=== PATIENT | male | born 1965 | race Caucasian/White ===

== ENCOUNTER 2021-12-27 16:53 | Emergency (ER) | payer MEDICARE, MEDICAID, SELFPAY ==
[2021-12-27 16:55] VITALS: BP 121/94; PULSE 107; RESP 16; TEMP 36.3; O2SAT 95; BMI 23.3
--- NOTE | 2021-12-27 17:24 | PC.NURSE ---
per Law Enforcement, pt was brought to ER for hallucinations and AMS. Pt had refused to go by ambulance but was agreeable to go with this officer. Per officer, pt does not normally have hallucinations. Pt is alert and oriented to person, place, and time. Pt reports hallucinations of people saying things that he doesn't want to hear. Pt unable to elaborate further. Pt also reports he thinks he has covid because I have all the symptoms. Pt denies known covid exposure, dyspnea, cough, sore throat, or fevers. Pt denies any pain. Denies SI/HI
--- NOTE | 2021-12-27 17:38 | ED.C_ITS ---
Documented by User: Rere Mcintosh MD 12/27/21 19:20 HPI - Psych General: Chief Complaint: Psychiatric Symptoms Stated Complaint: hallucinations Time Seen by Provider: 12/27/21 16:58 Source: patient and EMS Mode of arrival: EMS Limitations: no limitations History of Present Illness: 56-year-old male is here for hallucinations per EMS he stated that he saw someone under his chair. Patient tells me he has had a stroke in the past he does see things time to time but he knows that they are not real he is currently answering all my questions appropriately. He denies any suicidal or homicidal ideations he denies any worsening improving factors he has no focal deficits. Associated symptoms: Reports auditory hallucinations Review of Systems Const: Denies: fever(s), chills, body aches or change in appetite Eyes: Denies: blurry vision or eye discomfort ENMT: Denies: throat pain or dental pain Card: Denies: chest pain Resp: Denies: dyspnea GI: Denies: abdominal pain, nausea, vomiting or diarrhea : Denies: dysuria Musc: Denies: neck pain or back pain Skin/Breast: Denies: rash Neuro: Denies: headache(s) Psych: Reports: auditory hallucinations Chava/Lymph: Denies: easy bruising All/Imm: Denies: urticaria PFSH ED PFSH: Medical History (Updated 01/04/22 @ 00:01 by ) CVA (cerebrovascular accident) Social History (Updated 12/27/21 @ 19:18 by Rere Mcintosh MD) Substance/Drug Use: unknown Physical Exam Const: COMMON NORMALS: no acute distress, patient oriented x3 and healthy appearing HENMT: COMMON NORMALS: normocephalic and atraumatic HEAD & SCALP: normocephalic and atraumatic Eye: COMMON NORMALS: Equal, round and reactive pupils present and EOMs intact bilaterally PUPIL: Yes Equal, round and reactive pupils present Neck/C-Spine: COMMON NORMALS: full ROM and supple Chest: COMMONS NORMALS: normal inspection of the chest and normal palpation of entire chest wall Resp: COMMON NORMALS: normal respiratory effort, No retractions, No use of accessory muscles and clear to auscultation bilaterally AUSCULTATION: clear to auscultation bilaterally Cardio: COMMON NORMALS: regular rate, regular rhythm and No murmurs present (Cardio) RATE: regular rate RHYTHM: regular rhythm GI: COMMON NORMALS: Normal to inspection, nondistended, normoactive bowel sounds present, Soft to palpation, non-tender and no masses PALPATION: Yes Soft to palpation Extremity: COMMON NORMALS: normal to inspection and full ROM Neuro: COMMON NORMALS: patient oriented x3, moves all extremities and no focal motor deficits Psych: COMMON NORMALS: mental status grossly normal, Normal thought process present and cooperative THOUGHT PROCESS: Normal thought process present Skin: COMMON NORMALS: no rashes or lesions noted and no wounds GENERAL SKIN EXAM: no rashes or lesions noted Course Vital Signs: Vital signs: Vital Signs Temperature 97.3 F L 12/27/21 16:55 Pulse Rate 80 12/27/21 18:47 Respiratory Rate 18 12/27/21 18:47 Blood Pressure 131/98 12/27/21 18:47 Pulse Oximetry 100 12/27/21 18:47 Oxygen Delivery Me thod 12/27/21 18:47 MDM - Psych Medical Decision Making Patient presents here with possible loose [place] he is well-appearing here he has no signs of stroke he is able ambulate he is answering all my questions appropriately here he does not appear to be acutely psychotic he is not suicidal or homicidal he is stable for discharge he is to follow-up with PCP and return if worsening. He states that some of his hallucinations are chronic from a CVA he has no signs of any acute worsening he does not have any affidavits I did ask him if he felt like he needed to go to psych [facility] and he adamantly denied he stable for discharge Lab Data : 12/27/21 17:55 12/27/21 17:[address] 12/27/21 17:56 IMPRESSION: No acute intracranial abnormality. Laboratory Results WBC 7.4 10^3/uL (4.0-10.0) 12/27/21 17:55 RBC 5.64 10^6/uL (4.1-5.3) H 12/27/21 17:55 Hgb 16.8 g/dL (11.7-16.6) H 12/27/21 17:55 Hct 48.8 % (42.0-52.0) 12/27/21 17:55 MCV 86.5 fl (80-94) 12/27/21 17:55 MCH 29.8 pg (28.0-34.0) 12/27/21 17:55 MCHC 34.4 g/dL (30.0-36.0) 12/27/21 17:55 RDW 13.2 % (12.1-15.1) 12/27/21 17:55 Plt Count 186 10^3/cmm (130-400) 12/27/21 17:55 MPV 12.0 fL (7.4-10.4) H 12/27/21 17:55 Neut % (Auto) 83.0 % 12/27/21 17:55 Lymph % (Auto) 11.4 % 12/27/21 17:55 Churchill % (Auto) 4.7 % 12/27/21 17:55 Eos % (Auto) 0.1 % 12/27/21 17:55 Baso % (Auto) 0.5 % 12/27/21 17:55 Neut # (Auto) 6.17 10^3/uL (1.8-7.7) 12/27/21 17:55 Lymph # (Auto) 0.9 10^3/uL (0.8-4.8) 12/27/21 17:55 Churchill # (Auto) 0.4 10^3/uL (0.2-0.9) 12/27/21 17:55 Eos # (Auto) 0.0 10^3/uL (0.0-0.8) 12/27/21 17:55 Baso # (Auto) 0.0 10^3/uL (0.0-0.1) 12/27/21 17:55 Nucleated RBC % (auto) 0 % 12/27/21 17:55 Nucleated RBCs # 0.0 /100WBC 12/27/21 17:55 Sodium 140 mmol/L (136-145) 12/27/21 17:55 Potassium 4.4 mmol/L (3.5-5.1) 12/27/21 17:55 Chloride 98 mmol/L (98-107) 12/27/21 17:55 Carbon Dioxide 25 mmol/L (22-29) 12/27/21 17:55 Anion Gap 21.4 (5-19) H 12/27/21 17:55 BUN 32 mg/dL (6-20) H 12/27/21 17:55 Creatinine 1.8 mg/dL (0.7-1.2) H 12/27/21 17:55 GFR Calculation 38.9 mL/min (90-130) L 12/27/21 17: Glucose 123 mg/dL (65-115) H 12/27/21 17:55 Calculated Osmolality 298 mOsm/kg (285-295) H 12/27/21 17:55 Calcium 10.7 mg/dL (8.5-10.5) H 12/27/21 17: Total Bilirubin 1.6 mg/dL (0.15-1.2) H 12/27/21 17:55 AST 19 U/L (0-40) 12/27/21 17: ALT 19 U/L (0-41) 12/27/21 17:55 Alkaline Phosphatase 61 U/L (40-130) 12/27/21 17:55 Total Protein 7.8 g/dL (6.6-8.7) 12/27/21 17: Albumin 4.5 g/dL (3.5-5.2) 12/27/21 17: Globulin 3.3 g/dL (1.3-4.6) 12/27/21 17:55 Urine Color Courtney (Yellow) 12/27/21 18:30 Urine Appearance Clear (CLEAR) 12/27/21 18: Urine pH 5 (5-7) 12/27/21 18:30 Ur Specific Colstrip 1.030 (1.005-1.030) 12/27/21 18:30 Urine Protein Trace (Negative) 12/27/21 18:30 Urine Glucose (UA) Norm (Normal) 12/27/21 18:30 Urine Ketones 1+ (Negative) H 12/27/21 18:30 Urine Blood Neg (Negative) 12/27/21 18:30 Urine Nitrate Negative (Negative) 12/27/21 18: Urine Bilirubin 1+ (Negative) H 12/27/21 18:30 Urine Urobilinogen 1 mg/dL (Negative) H 12/27/21 18:30 Ur Leukocyte Esterase Negative (Negative) 12/27/21 18:30 Urine RBC Rare /hpf (0-2) 12/27/21 18:30 Urine WBC Rare /hpf (0-5) 12/27/21 18:30 Ur Squamous Epith Cells None /hpf (0-5) 12/27/21 18:30 Calcium Oxalate Crystal Rare /hpf 12/27/21 18:30 Amorphous Sediment 1+ /hpf 12/27/21 18:30 Urine Bacteria None /hpf (NONE) 12/27/21 18:30 Hyaline Casts 5-10 /lpf H 12/27/21 18:30 Fine Granular Casts Rare /lpf 12/27/21 18:30 Urine Mucus 2+ /hpf 12/27/21 18:30 Salicylates < 0.3 mg/dL (3-10) L 12/27/21 17:55 Urine Opiates Screen Negative ng/mL (Negative) 12/27/21 18:30 Acetaminophen < 5.0 ug/mL (10-30) L 12/27/21 17:55 Ur Barbiturates Screen Negative ng/mL (Negative) 12/27/21 18:30 Ur Phencyclidine Scrn Negative ng/mL (Negative) 12/27/21 18:30 Ur Amphetamines Screen Negative ng/mL (Negative) 12/27/21 18:30 U Benzodiazepines Scrn Negative ng/mL (Negative) 12/27/21 18:30 Urine Cocaine Screen Negative ng/mL (Negative) 12/27/21 18:30 U Marijuana (THC) Screen Negative ng/mL (Negative) 12/27/21 18:30 Discharge Plan Discharge Patient Disposition: Home Clinical Impression: Hallucination Condition: Stable Discharge Orders: Discharge ED (Routine); Ordered 12/27/21 Ordered By: Rere Mcintosh Discharge Diet: Advance as tolerated Discharge Activity: Resume usual activity Patient Instructions: Hallucinations (ED) Coding Level of Care Code ED Maintenance Groundman for Chg Fwd Exam Comprehensive Documented by User: Supa Escalante DO 01/06/22 07:40 HPI - Psych General: Chief Complaint: Psychiatric Symptoms Stated Complaint: hallucinations Time Seen by Provider: 12/27/21 16:58 PFSH ED PFSH: Medical History (Updated 01/04/22 @ 00:01 by ) CVA (cerebrovascular accident) Social History (Updated 12/27/21 @ 19:18 by Rere Mcintosh MD) Substance/Drug Use: unknown Course Vital Signs: Vital signs: Vital Signs Temperature 97.3 F L 12/27/21 16:55 Pulse Rate 80 12/27/21 18:47 Respiratory Rate 18 12/27/21 18:47 Blood Pressure 131/98 12/27/21 18:47 Pulse Oximetry 100 12/27/21 18:47 Oxygen Delivery Me thod 12/27/21 18:47 [facility] - Psych Medical Decision Making Care signed out to Dr. Mcintosh at change of shift. See final notes for diagnosis and disposition. Patient presents here with possible loose [place] he is well-appearing here he has no signs of stroke he is able ambulate he is answering all my questions appropriately here he does not appear to be acutely psychotic he is not suicidal or homicidal he is stable for discharge he is to follow-up with PCP and return if worsening. He states that some of his hallucinations are chronic from a CVA he has no signs of any acute worsening he does not have any affidavits I did ask him if he felt like he needed to go to psych [facility] and he adamantly denied he s table for discharge Lab Data : 12/27/21 17:55 12/27/21 17:[address] 12/27/21 17:56 IMPRESSION: No acute intracranial abnormality. Laboratory Results WBC 7.4 10^3/uL (4.0-10.0) 12/27/21 17:55 RBC 5.64 10^6/uL (4.1-5.3) H 12/27/21 17:55 Hgb 16.8 g/dL (11.7-16.6) H 12/27/21 17:55 Hct 48.8 % (42.0-52.0) 12/27/21 17:55 MCV 86.5 fl (80-94) 12/27/21 17:55 MCH 29.8 pg (28.0-34.0) 12/27/21 17:55 MCHC 34.4 g/dL (30.0-36.0) 12/27/21 17:55 RDW 13.2 % (12.1-15.1) 12/27/21 17:55 Plt Count 186 10^3/cmm (130-400) 12/27/21 17:55 MPV 12.0 fL (7.4-10.4) H 12/27/21 17:55 Neut % (Auto) 83.0 % 12/27/21 17:55 Lymph % (Auto) 11.4 % 12/27/21 17:55 Churchill % (Auto) 4.7 % 12/27/21 17:55 Eos % (Auto) 0.1 % 12/27/21 17:55 Baso % (Auto) 0.5 % 12/27/21 17:55 Neut # (Auto) 6.17 10^3/uL (1.8-7.7) 12/27/21 17:55 Lymph # (Auto) 0.9 10^3/uL (0.8-4.8) 12/27/21 17:55 Churchill # (Auto) 0.4 10^3/uL (0.2-0.9) 12/27/21 17:55 Eos # (Auto) 0.0 10^3/uL (0.0-0.8) 12/27/21 17:55 Baso # (Auto) 0.0 10^3/uL (0.0-0.1) 12/27/21 17:55 Nucleated RBC % (auto) 0 % 12/27/21 17:55 Nucleated RBCs # 0.0 /100WBC 12/27/21 17:55 Sodium 140 mmol/L (136-145) 12/27/21 17:55 Potassium 4.4 mmol/L (3.5-5.1) 12/27/21 17:55 Chloride 98 mmol/L (98-107) 12/27/21 17:55 Carbon Dioxide 25 mmol/L (22-29) 12/27/21 17:55 Anion Gap 21.4 (5-19) H 12/27/21 17:55 BUN 32 mg/dL (6-20) H 12/27/21 17:55 Creatinine 1.8 mg/dL (0.7-1.2) H 12/27/21 17:55 GFR Calculation 38.9 mL/min (90-130) L 12/27/21 17:55 Glucose 123 mg/dL (65-115) H 12/27/21 17:55 Calculated Osmolality 298 mOsm/kg (285-295) H 12/27/21 17:55 Calcium 10.7 mg/dL (8.5-10.5) H 12/27/21 17:55 Total Bilirubin 1.6 mg/dL (0.15-1.2) H 12/27/21 17:55 AST 19 U/L (0-40) 12/27/21 17: ALT 19 U/L (0-41) 12/27/21 17:55 Alkaline Phosphatase 61 U/L (40-130) 12/27/21 17:55 Total Protein 7.8 g/dL (6.6-8.7) 12/27/21 17: Albumin 4.5 g/dL (3.5-5.2) 12/27/21 17: Globulin 3.3 g/dL (1.3-4.6) 12/27/21 17:55 Urine Color Courtney (Yellow) 12/27/21 18:30 Urine Appearance Clear (CLEAR) 12/27/21 18:30 Urine pH 5 (5-7) 12/27/21 18:30 Ur Specific Colstrip 1.030 (1.005-1.030) 12/27/21 18:30 Urine Protein Trace (Negative) 12/27/21 18:30 Urine Glucose (UA) Norm (Normal) 12/27/21 18:30 Urine Ketones 1+ (Negative) H 12/27/21 18:30 Urine Blood Neg (Negative) 12/27/21 18:30 Urine Nitrate Negative (Negative) 12/27/21 18:30 Urine Bilirubin 1+ (Negative) H 12/27/21 18:30 Urine Urobilinogen 1 mg/dL (Negative) H 12/27/21 18:30 Ur Leukocyte Esterase Negative (Negative) 12/27/21 18:30 Urine RBC Rare /hpf (0-2) 12/27/21 18:30 Urine WBC Rare /hpf (0-5) 12/27/21 18:30 Ur Squamous Epith Cells None /hpf (0-5) 12/27/21 18:30 Calcium Oxalate Crystal Rare /hpf 12/27/21 18:30 Amorphous Sediment 1+ /hpf 12/27/21 18:30 Urine Bacteria None /hpf (NONE) 12/27/21 18:30 Hyaline Casts 5-10 /lpf H 12/27/21 18:30 Fine Granular Casts Rare /lpf 12/27/21 18:30 Urine Mucus 2+ /hpf 12/27/21 18:30 Salicylates < 0.3 mg/dL (3-10) L 12/27/21 17:55 Urine Opiates Screen Negative ng/mL (Negative) 12/27/21 18:30 Acetaminophen < 5.0 ug/mL (10-30) L 12/27/21 17:55 Ur Barbiturates Screen Negative ng/mL (Negative) 12/27/21 18:30 Ur Phencyclidine Scrn Negative ng/mL (Negative) 12/27/21 18:30 Ur Amphetamines Screen Negative ng/mL (Negative) 12/27/21 18:30 U Benzodiazepines Scrn Negative ng/mL (Negative) 12/27/21 18:30 Urine Cocaine Screen Negative ng/mL (Negative) 12/27/21 18:30 U Marijuana (THC) Screen Negative ng/mL (Negative) 12/27/21 18:30 Discharge Plan Discharge Patient Disposition: Home Clinical Impression: Hallucination Condition: Stable Discharge Orders: Discharge ED (Routine); Ordered 12/27/21 Ordered By: Rere Mcintosh Discharge Diet: Advance as tolerated Discharge Activity: Resume usual activity Patient Instructions: Hallucinations (ED) Coding Level of Care Code ED Maintenance Groundman for Caterina Webb Exam Comprehensive
--- NOTE | 2021-12-27 17:56 | CTR_ITS ---
PROCEDURE INFORMATION: Exam: CT Head Without Contrast Exam date and time: 12/27/2021 6:08 PM Age: 56 years old Clinical indication: Altered mental status/memory loss and other: Hallucinations; Prior surgery; Surgery date: 6+ months; Surgery type: Jaw; Additional info: AMS TECHNIQUE: Imaging protocol: Computed tomography of the head without contrast. Radiation optimization: All CT scans at this facility use at least one of these dose optimization techniques: automated exposure control; mA and/or kV adjustment per patient size (includes targeted exams where dose is matched to clinical indication); or iterative reconstruction. COMPARISON: No relevant prior studies available. RADIATION DOSE METRICS: Total DLP (mGy-cm): 1147.78 FINDINGS: Brain: Small areas of encephalomalacia are seen in bilateral frontal lobes. Mild atrophy and mild white matter chronic microvascular changes are noted. No hemorrhage or evidence of acute infarction. Cerebral ventricles: No ventriculomegaly. Paranasal sinuses: Visualized sinuses are unremarkable. No fluid levels. Mastoid air cells: Visualized mastoid air cells are well aerated. Bones/joints: No acute fracture. Small young holes are seen in bilateral frontal bones. Soft tissues: Unremarkable. CT/CT head wo con* [id number] IMPRESSION: No acute intracranial abnormality.
[2021-12-27 18:01] LABS: Basophils % 0.5 %; Eosinophils % 0.1 %; Hematocrit 48.8 % (42.0-52.0); Hemoglobin 16.8 g/dL (11.7-16.6); Lymphocytes # 0.9 10^3/uL (0.8-4.8); Lymphocytes % 11.4 %; Mean Corpuscular HGB Conc 34.4 g/dL (30.0-36.0); Mean Corpuscular Hemoglobin 29.8 pg (28.0-34.0); Mean Corpuscular Volume 86.5 fl (80-94); Monocytes # 0.4 10^3/uL (0.2-0.9); Monocytes % 4.7 %; Neutrophils # 6.17 10^3/uL (1.8-7.7); Nucleated Red Blood Cells % 0 %; Platelet Count 186 10^3/cmm (130-400); Red Blood Count 5.64 10^6/uL (4.1-5.3); Red Cell Distribution Width 13.2 % (12.1-15.1); White Blood Count 7.4 10^3/uL (4.0-10.0)
[2021-12-27 18:19] LABS: Alanine Aminotransferase 19 U/L (0-41); Albumin Level 4.5 g/dL (3.5-5.2); Alkaline Phosphatase 61 U/L (40-130); Anion Gap 21.4 (5-19); Aspartate Amino Transferase 19 U/L (0-40); Blood Urea Nitrogen 32 mg/dL (6-20); Calcium 10.7 mg/dL (8.5-10.5); Carbon Dioxide 25 mmol/L (22-29); Chloride 98 mmol/L (98-107); Globulin 3.3 g/dL (1.3-4.6); Glomerular Filtration Rate 38.9 mL/min (90-130); Glucose 123 mg/dL (65-115); Osmolality Calculated 298 mOsm/kg (285-295); Potassium 4.4 mmol/L (3.5-5.1); Sodium 140 mmol/L (136-145); Total Bilirubin 1.6 mg/dL (0.15-1.2); Total Protein 7.8 g/dL (6.6-8.7)
[2021-12-27 18:27] LABS: Acetaminophen < 5.0 ug/mL (10-30); Salicylate < 0.3 mg/dL (3-10)
[2021-12-27 18:47] VITALS: BP 131/98; PULSE 80; RESP 18; O2SAT 100
--- NOTE | 2021-12-27 18:48 | PC.NURSE ---
pt resting in bed, watching TV.
[2021-12-27 19:04] LABS: Add Urine Microscopic? YES; Bilirubin Urine 1+ (Negative); Blood Urine Neg (Negative); Glucose Urine UA Norm (Normal); Ketones Urine 1+ (Negative); Leukocyte Esterase Urine Negative (Negative); Nitrate Urine Negative (Negative); Protein Urine Trace (Negative); RBC Urine RARE /hpf (0-2); Urine Appearance Clear (CLEAR); Urine Color Amber (Yellow); Urobilinogen Urine 1 mg/dL (Negative); WBC Urine RARE /hpf (0-5); pH Urine 5 (5-7)
[2021-12-27 19:05] LABS: Add Urine Culture? No; Amorphous Sediment Urine 1+ /hpf; Amphetamines Screen Urine Negative (Negative); Barbiturates Screen Urine Negative (Negative); Benzodiazepines Screen Urine Negative (Negative); Calcium Oxalate Crystals Urine RARE /hpf; Cocaine Screen Urine Negative (Negative); Fine Granular Casts Urine RARE /lpf; Mucus Urine 2+ /hpf; Opiate Screen Urine Negative (Negative); PCP Screen Urine Negative (Negative); THC Screen Urine Negative (Negative)
== END 2021-12-27 19:11 | disposition home or self-care (01) ==
PROVIDERS: Family Medicine; Emergency Provider Emergency Medicine
DX: R44.1 Visual hallucinations (principal); Z86.73 Personal history of transient ischemic attack (TIA), and cerebral infarction without residual deficits
CPT/HCPCS: 70450; 80053; 80306; 80307; 81001; 85025; 99284

== ENCOUNTER 2021-12-28 20:39 | Observation (INO) | payer MEDICARE, MEDICAID, SELFPAY ==
[2021-12-28] VITALS (11 sets, daily range): BP systolic 126–139; BP diastolic 82–93; PULSE 73–119; RESP 16–22; TEMP 36.4; O2SAT 95–99; BMI 20.2
--- NOTE | 2021-12-28 20:57 | W.ED.AMS ---
Documented by User: Marito Ferguson MD 01/03/22 16:57 HPI - Altered Mental Status General: Chief Complaint: Altered Mental Status Stated Complaint: Confused Time Seen by Provider: 12/28/21 20:57 Limitations: altered mental status History of Present Illness: Mr Boudreaux is a 56-year-old gentleman with history of diabetes, CAD, strokes presenting to the emergency department due to altered mental status. The patient himself appears largely unaware of recent history. He reports that he has been sick for some period of time and perhaps worse over the past few days but does not endorse specific symptoms that are worse than baseline. Per supplemental history provided by patient's son he seemed to be much more confused over the past few days and was found trying to get into strangers cars. His house was disheveled and medications were scattered about. He seemed to be delusional and possibly hallucinating. Typically patient is well oriented and functional. Onset (ago): day(s) Review of Systems General: Reports: 10 or more systems reviewed and unremarkable except in HPI and below PFSH ED PFSH: Medical History CAD (coronary artery disease) Diabetes HTN (hypertension) Stroke Surgical History Coronary angioplasty status Social History Smoking and tobacco status: former smoker Alcohol intake: former Physical Exam Const: COMMON NORMALS: patient oriented x3 and alert GENERAL APPEARANCE: cooperative, well developed and ill appearing (mildly) HENMT: COMMON NORMALS: normocephalic and atraumatic HEAD & SCALP: normocephalic and atraumatic THROAT: posterior oropharynx normal Eye: COMMON NORMALS: conjunctivae normal CONJUNCTIVA: Yes conjunctivae normal SCLERA: sclerae normal Neck/C-Spine: COMMON NORMALS: supple GENERAL: Yes trachea midline Resp: COMMON NORMALS: normal respiratory effort EFFORT & INSPECTION: Yes able to speak in complete sentences Cardio: COMMON NORMALS: regular rate and regular rhythm RATE: regular rate RHYTHM: regular rhythm GI: COMMON NORMALS: Soft to palpation PALPATION: Yes Soft to palpation and No Tenderness to palpation present (GI) PERCUSSION: normal to percussion Extremity: GENERAL: Yes normal exam except as noted and No edema Neuro: COMMON NORMALS: patient oriented x3, CN's II-XII intact bilaterally, moves all extremities, no focal motor deficits and no sensory deficits noted SENSORIUM/ORIENTATION: Yes alert and No Orientation impaired Psych: COMMON NORMALS: mental status grossly normal and Normal thought process present THOUGHT PROCESS: Normal thought process present Course Vital Signs: Vital signs: Vital Signs Temperature 97.8 F 12/30/21 11:34 Pulse Rate 63 12/30/21 11:34 Respiratory Rate 15 12/30/21 11:34 Blood Pressure 127/86 12/30/21 11:34 Pulse Oximetry 98 12/30/21 11:34 Oxygen Delivery Me thod 12/30/21 11:34 MDM - Altered Mental Status Medical Decision Making 56-year-old gentleman presenting with altered mental status. Patient has significant medical comorbidities and differential of causes is broad. Handed off to Dr. Mcintosh pending completion of ED evaluation for disposition. Patient presents here with some confusion altered mental status and hallucinations. I have spoke to psychiatrist Dr. Ayers. I took patient over from Dr. Nam and I do believe this is likely more psychiatric but talkative family has a history of a stroke and they state that that presented similarly so I did speak to hospitalist and will admit at this time for an MRI patient was placed under 96-hour hold. Medical Records I reviewed the patient's medical records. Lab Data I reviewed the patient's lab results. : 12/30/21 04:48 12/30/21 04:48 Radiology Impressions Chest X-Ray 12/28/21 21:09 IMPRESSION: No acute findings. Head CT 12/28/21 21:09 IMPRESSION: No acute intracranial abnormality. Head MRI 12/29/21 01:53 IMPRESSION: 1. No evidence of restricted diffusion to suggest acute ischemia. 2. Moderate patchy supratentorial white matter changes can be seen with hypertension, diabetes, small vessel disease in a patient this age. Mild parenchymal volume loss. 3. Moderate symmetric atrophy temporal lobes and hippocampal formations. 4. 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 Associated encephalomalacia and gliosis with a small amount of hemosiderin. 5. No other suspicious findings. Laboratory Results WBC 8.6 10^3/uL (4.0-10.0) 12/28/21 21:10 RBC 5.07 10^6/uL (4.1-5.3) 12/28/21 21:10 Hgb 15.3 g/dL (11.7-16.6) 12/28/21 21:10 Hct 43.0 % (42.0-52.0) 12/28/21 21:10 MCV 84.8 fl (80-94) 12/28/21 21:10 MCH 30.2 pg (28.0-34.0) 12/28/21 21:10 MCHC 35.6 g/dL (30.0-36.0) 12/28/21 21:10 RDW 13.2 % (12.1-15.1) 12/28/21 21:10 Plt Count 185 10^3/cmm (130-400) 12/28/21 21:10 MPV 11.7 fL (7.4-10.4) H 12/28/21 21:10 Neut % (Auto) 80.2 % 12/28/21 21:10 Lymph % (Auto) 12.3 % 12/28/21 21:10 [place] % (Auto) 6.3 % 12/28/21 21:10 Eos % (Auto) 0.4 % 12/28/21 21:10 Baso % (Auto) 0.4 % 12/28/21 21:10 Neut # (Auto) 6.87 10^3/uL (1.8-7.7) 12/28/21 21:10 Lymph # (Auto) 1.1 10^3/uL (0.8-4.8) 12/28/21 21:10 [place] # (Auto) 0.5 10^3/uL (0.2-0.9) 12/28/21 21:10 Eos # (Auto) 0.0 10^3/uL (0.0-0.8) 12/28/21 21:10 Baso # (Auto) 0.0 10^3/uL (0.0-0.1) 12/28/21 21:10 Nucleated RBC % (auto) 0 % 12/28/21 21:10 Nucleated RBCs # 0.0 /100WBC 12/28/21 21:10 Specimen Type Arterial 12/28/21 21:14 Sample Site Radial, right 12/28/21 21:14 ABG pH 7.46 (7.35-7.45) H 12/28/21 21:14 ABG pCO2 36.1 mmHg (35-45) 12/28/21 21:14 ABG pO2 96.5 mmHg (80.0-100.0) 12/28/21 21:14 ABG HCO3 25.6 mmol/L (22-26) 12/28/21 21:14 ABG O2 Saturation 98.5 12/28/21 21:14 ABG Base Excess 1.9 mmol/L (-2.0-2.0) 12/28/21 21:14 Jelani Test Pos 12/28/21 21:14 A-a O2 Gradient 1.0 mmHg (5-10) L 12/28/21 21:14 Hematocrit 45.4 % (42-52) 12/28/21 21:14 Hgb O2 Saturation 97.1 % (95-100) 12/28/21 21:14 Carboxyhemoglobin 0.9 %THgb (0.4-20.1) 12/28/21 21:14 Methemoglobin 0.5 % (0.4-1.5) 12/28/21 21:14 Total Hemoglobin 14.8 g/dL (14-18) 12/28/21 21:14 Sodium 137.0 mmol/L (131-143) 12/28/21 21:14 Potassium 3.4 mmol/L (3.5-5.0) L 12/28/21 21:14 Glucose 140.0 mg/dL (70-115) H 12/28/21 21:14 Ionized Calcium 1.3 mmol/L (1.1-1.4) 12/28/21 21:14 O2 Delivery Device None 12/28/21 21:14 FiO2 21.0 % 12/28/21 21:14 Asbestos Siding Mechanic ID [place] 12/28/21 21:14 Sodium 137 mmol/L (136-145) 12/28/21 21:10 Potassium 4.0 mmol/L (3.5-5.1) 12/28/21 21:10 Chloride 98 mmol/L (98-107) 12/28/21 21:10 Carbon Dioxide 25 mmol/L (22-29) 12/28/21 21:10 Anion Gap 18.0 (5-19) 12/28/21 21:10 BUN 39 mg/dL (6-20) H 12/28/21 21:10 Creatinine 1.9 mg/dL (0.7-1.2) H 12/28/21 21:10 GFR Calculation 36.6 mL/min (90-130) L 12/28/21 21:10 Glucose 136 mg/dL (65-115) H 12/28/21 21:10 POC Glucose 130 mg/dL (70-110) H 12/28/21 21:04 Calculated Osmolality 295 mOsm/kg (285-295) 12/28/21 21:10 Calcium 10.4 mg/dL (8.5-10.5) 12/28/21 21:10 Total Bilirubin 1.8 mg/dL (0.15-1.2) H 12/28/21 21:10 AST 25 U/L (0-40) 12/28/21 21:10 ALT 23 U/L (0-41) 12/28/21 21:10 Alkaline Phosphatase 56 U/L (40-130) 12/28/21 21:10 Ammonia 16 umol/L (16-60) 12/28/21 21:10 Troponin T Baseline 19 ng/L (0-15) H 12/28/21 21:10 Total Protein 7.6 g/dL (6.6-8.7) 12/28/21 21:10 Albumin 4.2 g/dL (3.5-5.2) 12/28/21 21:10 Globulin 3.4 g/dL (1.3-4.6) 12/28/21 21:10 TSH 1.81 uIU/mL (0.27-4.20) 12/28/21 21:10 Salicylates < 0.3 mg/dL (3-10) L 12/28/21 21:10 Acetaminophen < 5.0 ug/mL (10-30) L 12/28/21 21:10 Ethyl Alcohol < 10 mg/dL (0-10) 12/28/21 21:10 Coronavirus 229E (PCR) Not detected (NOT DETECT) 12/28/21 21:30 SARS-CoV-2 (PCR) Not detected (NOT DETECT) 12/28/21 21:30 Discharge Plan Discharge Patient Disposition: Admitted As Inpatient Admit Provider: Pa Wilson Clinical Impression: Altered mental status, Hallucination Condition: Stable Coding Level of Care Code ED Personal Health Coach for Chg Fwd Exam Comprehensive Documented by User: Rere Mcintosh MD 12/28/21 23:42 HPI - Altered Mental Status General: Chief Complaint: Altered Mental Status Stated Complaint: Confused Time Seen by Provider: 12/28/21 20:57 PFSH ED PFSH: Medical History CAD (coronary artery disease) Diabetes HTN (hypertension) Stroke Surgical History Coronary angioplasty status Social History Smoking and tobacco status: former smoker Alcohol intake: former Course Vital Signs: Vital signs: Vital Signs Temperature 97.8 F 12/30/21 11:34 Pulse Rate 63 12/30/21 11:34 Respiratory Rate 15 12/30/21 11:34 Blood Pressure 127/86 12/30/21 11:34 Pulse Oximetry 98 12/30/21 11:34 Oxygen Delivery Me thod 12/30/21 11:34 MDM - Altered Mental Status Medical Decision Making Patient presents here with some confusion altered mental status and hallucinations. I have spoke to psychiatrist Dr. Ayers. I took patient over from Dr. Nam and I do believe this is likely more psychiatric but talkative family has a history of a stroke and they state that that presented similarly so I did speak to hospitalist and will admit at this time for an MRI patient was placed under 96-hour hold. Lab Data : 12/30/21 04:48 12/30/21 04:48 Radiology Impressions Chest X-Ray 12/28/21 21:09 IMPRESSION: No acute findings. Head CT 12/28/21 21:09 IMPRESSION: No acute intracranial abnormality. Head MRI 12/29/21 01:53 IMPRESSION: 1. No evidence of restricted diffusion to suggest acute ischemia. 2. Moderate patchy supratentorial white matter changes can be seen with hypertension, diabetes, small vessel disease in a patient this age. Mild parenchymal volume loss. 3. Moderate symmetric atrophy temporal lobes and hippocampal formations. 4. 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 Associated encephalomalacia and gliosis with a small amount of hemosiderin. 5. No other suspicious findings. Laboratory Results WBC 8.6 10^3/uL (4.0-10.0) 12/28/21 21:10 RBC 5.07 10^6/uL (4.1-5.3) 12/28/21 21:10 Hgb 15.3 g/dL (11.7-16.6) 12/28/21 21:10 Hct 43.0 % (42.0-52.0) 12/28/21 21:10 MCV 84.8 fl (80-94) 12/28/21 21:10 MCH 30.2 pg (28.0-34.0) 12/28/21 21:10 MCHC 35.6 g/dL (30.0-36.0) 12/28/21 21:10 RDW 13.2 % (12.1-15.1) 12/28/21 21:10 Plt Count 185 10^3/cmm (130-400) 12/28/21 21:10 MPV 11.7 fL (7.4-10.4) H 12/28/21 21:10 Neut % (Auto) 80.2 % 12/28/21 21:10 Lymph % (Auto) 12.3 % 12/28/21 21:10 [place] % (Auto) 6.3 % 12/28/21 21:10 Eos % (Auto) 0.4 % 12/28/21 21:10 Baso % (Auto) 0.4 % 12/28/21 21:10 Neut # (Auto) 6.87 10^3/uL (1.8-7.7) 12/28/21 21:10 Lymph # (Auto) 1.1 10^3/uL (0.8-4.8) 12/28/21 21:10 [place] # (Auto) 0.5 10^3/uL (0.2-0.9) 12/28/21 21:10 Eos # (Auto) 0.0 10^3/uL (0.0-0.8) 12/28/21 21:10 Baso # (Auto) 0.0 10^3/uL (0.0-0.1) 12/28/21 21:10 Nucleated RBC % (auto) 0 % 12/28/21 21:10 Nucleated RBCs # 0.0 /100WBC 12/28/21 21:10 Specimen Type Arterial 12/28/21 21:14 Sample Site Radial, right 12/28/21 21:14 ABG pH 7.46 (7.35-7.45) H 12/28/21 21:14 ABG pCO2 36.1 mmHg (35-45) 12/28/21 21:14 ABG pO2 96.5 mmHg (80.0-100.0) 12/28/21 21:14 ABG HCO3 25.6 mmol/L (22-26) 12/28/21 21:14 ABG O2 Saturation 98.5 12/28/21 21:14 ABG Base Excess 1.9 mmol/L (-2.0-2.0) 12/28/21 21:14 Jelani Test Pos 12/28/21 21:14 A-a O2 Gradient 1.0 mmHg (5-10) L 12/28/21 21:14 Hematocrit 45.4 % (42-52) 12/28/21 21:14 Hgb O2 Saturation 97.1 % (95-100) 12/28/21 21:14 Carboxyhemoglobin 0.9 %THgb (0.4-20.1) 12/28/21 21:14 Methemoglobin 0.5 % (0.4-1.5) 12/28/21 21:14 Total Hemoglobin 14.8 g/dL (14-18) 12/28/21 21:14 Sodium 137.0 mmol/L (131-143) 12/28/21 21:14 Potassium 3.4 mmol/L (3.5-5.0) L 12/28/21 21:14 Glucose 140.0 mg/dL (70-115) H 12/28/21 21:14 Ionized Calcium 1.3 mmol/L (1.1-1.4) 12/28/21 21:14 O2 Delivery Device None 12/28/21 21:14 FiO2 21.0 % 12/28/21 21:14 Asbestos Siding Mechanic ID [place] 12/28/21 21:14 Sodium 137 mmol/L (136-145) 12/28/21 21:10 Potassium 4.0 mmol/L (3.5-5.1) 12/28/21 21:10 Chloride 98 mmol/L (98-107) 12/28/21 21:10 Carbon Dioxide 25 mmol/L (22-29) 12/28/21 21:10 Anion Gap 18.0 (5-19) 12/28/21 21:10 BUN 39 mg/dL (6-20) H 12/28/21 21:10 Creatinine 1.9 mg/dL (0.7-1.2) H 12/28/21 21:10 GFR Calculation 36.6 mL/min (90-130) L 12/28/21 21:10 Glucose 136 mg/dL (65-115) H 12/28/21 21:10 POC Glucose 130 mg/dL (70-110) H 12/28/21 21:04 Calculated Osmolality 295 mOsm/kg (285-295) 12/28/21 21:10 Calcium 10.4 mg/dL (8.5-10.5) 12/28/21 21:10 Total Bilirubin 1.8 mg/dL (0.15-1.2) H 12/28/21 21:10 AST 25 U/L (0-40) 12/28/21 21:10 ALT 23 U/L (0-41) 12/28/21 21:10 Alkaline Phosphatase 56 U/L (40-130) 12/28/21 21:10 Ammonia 16 umol/L (16-60) 12/28/21 21:10 Troponin T Baseline 19 ng/L (0-15) H 12/28/21 21:10 Total Protein 7.6 g/dL (6.6-8.7) 12/28/21 21:10 Albumin 4.2 g/dL (3.5-5.2) 12/28/21 21:10 Globulin 3.4 g/dL (1.3-4.6) 12/28/21 21:10 TSH 1.81 uIU/mL (0.27-4.20) 12/28/21 21:10 Salicylates < 0.3 mg/dL (3-10) L 12/28/21 21:10 Acetaminophen < 5.0 ug/mL (10-30) L 12/28/21 21:10 Ethyl Alcohol < 10 mg/dL (0-10) 12/28/21 21:10 Coronavirus 229E (PCR) Not detected (NOT DETECT) 12/28/21 21:30 SARS-CoV-2 (PCR) Not detected (NOT DETECT) 12/28/21 21:30 Discharge Plan Discharge Patient Disposition: Admitted As Inpatient Admit Provider: Pa Wilson Clinical Impression: Altered mental status, Hallucination Condition: Stable Coding Level of Care Code ED Personal Health Coach for Caterina Fwd Exam Comprehensive
--- NOTE | 2021-12-28 21:09 | CTR_ITS ---
PROCEDURE INFORMATION: Exam: CT Head Without Contrast Exam date and time: 12/28/2021 9:46 PM Age: 56 years old Clinical indication: Altered mental status/memory loss; Confusion or disorientation; Patient HX: Worsening confusion per family. ; Additional info: AMS TECHNIQUE: Imaging protocol: Computed tomography of the head without contrast. Radiation optimization: All CT scans at this facility use at least one of these dose optimization techniques: automated exposure control; mA and/or kV adjustment per patient size (includes targeted exams where dose is matched to clinical indication); or iterative reconstruction. COMPARISON: No relevant prior studies available. RADIATION DOSE METRICS: Total DLP (mGy-cm): 1114.98 FINDINGS: Brain: Mild bifrontal encephalomalacia. No acute intracranial findings with no evident focal mass effect or intracranial hemorrhage. Cerebral ventricles: No ventriculomegaly. Paranasal sinuses: Visualized sinuses are unremarkable. No fluid levels. Mastoid air cells: Visualized mastoid air cells are well aerated. Bones/joints: No acute findings. Soft tissues: Unremarkable. CT/CT head wo con* [id number] IMPRESSION: No acute intracranial abnormality.
--- NOTE | 2021-12-28 21:09 | XRR_ITS ---
PROCEDURE INFORMATION: Exam: XR Chest Exam date and time: 12/28/2021 9:17 PM Age: 56 years old Clinical indication: Other: Confuffion; Additional info: AMS TECHNIQUE: Imaging protocol: Radiologic exam of the chest. Views: 1 view. COMPARISON: No relevant prior studies available. FINDINGS: Lungs: Unremarkable. No consolidation. Pleural spaces: Unremarkable. No pleural effusion. No pneumothorax. Heart/Mediastinum: Unremarkable. No cardiomegaly. Bones/joints: No acute findings. XR/XR chest 1V portable [id number] IMPRESSION: No acute findings.
--- NOTE | 2021-12-28 21:10 | ECG_ITS ---
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 Measurements Intervals [place] Rate: 75 P: 63 [place]: 161 QRS: 24 QRSD: 89 T: -12 QT: 371 QTc: 417 Interpretive Statements SINUS RHYTHM WITH OCCASIONAL VENTRICULAR PREMATURE COMPLEXES MODERATE T-WAVE ABNORMALITY, CONSIDER INFERIOR ISCHEMIA [-0.1+ mV T-WAVE IN II/aVF] No previous ECG available for comparison Electronically Signed On 12-29-2021 7:08:09 CDT by Delta Martin M.D. [id number]
[2021-12-28 21:12] LABS: Glucose Point of Care 130 mg/dL (70-110)
[2021-12-28 21:15] LABS: Basophils % 0.4 %; Eosinophils % 0.4 %; Hemoglobin 15.3 g/dL (11.7-16.6); Lymphocytes # 1.1 10^3/uL (0.8-4.8); Lymphocytes % 12.3 %; Mean Corpuscular HGB Conc 35.6 g/dL (30.0-36.0); Mean Corpuscular Hemoglobin 30.2 pg (28.0-34.0); Mean Corpuscular Volume 84.8 fl (80-94); Mean Platelet Volume 11.7 fL (7.4-10.4); Monocytes # 0.5 10^3/uL (0.2-0.9); Monocytes % 6.3 %; Neutrophils # 6.87 10^3/uL (1.8-7.7); Neutrophils % 80.2 %; Nucleated Red Blood Cells % 0 %; Platelet Count 185 10^3/cmm (130-400); Red Blood Count 5.07 10^6/uL (4.1-5.3); Red Cell Distribution Width 13.2 % (12.1-15.1); White Blood Count 8.6 10^3/uL (4.0-10.0)
[2021-12-28 21:25] LABS: ABG PCO2 36.1 mmHg (35-45); ABG PH Result 7.46 (7.35-7.45); Arterial Blood Gas Hematocrit 45.4 % (42-52); Base Excess ABG 1.9 mmol/L (-2.0-2.0); Blood Gas Allen Test Pos; Blood Gas Operator Identificat WALCI; Blood Gas Sample Site Radial, right; Blood Gas Sample Type Arterial; Carboxyhemoglobin 0.9 %THgb (0.4-20.1); HCO3 ABG 25.6 mmol/L (22-26); HGB O2 Sat 97.1 % (95-100); Ionized Calcium Level - ABG 1.3 mmol/L (1.1-1.4); Methemoglobin 0.5 % (0.4-1.5); Oxygen Saturation ABG 98.5; PO2 ABG 96.5 mmHg (80.0-100.0); Potassium Level - ABG 3.4 mmol/L (3.5-5.0); Total Hemoglobin 14.8 g/dL (14-18)
[2021-12-28] MEDS: sodium chloride 0.9% 1,000 ML 999 ML IV (21:38)
[2021-12-28 21:42] LABS: Troponin(5th) Baseline 19 ng/L (0-15)
[2021-12-28 21:50] LABS: Acetaminophen < 5.0 ug/mL (10-30); Alanine Aminotransferase 23 U/L (0-41); Albumin Level 4.2 g/dL (3.5-5.2); Alcohol Level < 10 mg/dL (0-10); Alkaline Phosphatase 56 U/L (40-130); Aspartate Amino Transferase 25 U/L (0-40); Blood Urea Nitrogen 39 mg/dL (6-20); Calcium 10.4 mg/dL (8.5-10.5); Carbon Dioxide 25 mmol/L (22-29); Chloride 98 mmol/L (98-107); Globulin 3.4 g/dL (1.3-4.6); Glomerular Filtration Rate 36.6 mL/min (90-130); Glucose 136 mg/dL (65-115); Osmolality Calculated 295 mOsm/kg (285-295); Salicylate < 0.3 mg/dL (3-10); Sodium 137 mmol/L (136-145); Thyroid Stimulating Hormone 1.81 uIU/mL (0.27-4.20); Total Bilirubin 1.8 mg/dL (0.15-1.2); Total Protein 7.6 g/dL (6.6-8.7)
[2021-12-28 22:04] LABS: Ammonia 16 umol/L (16-60)
[2021-12-28] MEDS: haloperidol inj 5 mg/mL INJ 1 mL IM (23:20)
[2021-12-28 23:47] LABS: Adenovirus Not Detected (NOT DETECT); Chlamydia Pneumoniae Not Detected (NOT DETECT); Coronavirus 229E,HKU1,NL63,OC4 Not Detected (NOT DETECT); Human Metapneumovirus Not Detected (NOT DETECT); Human Rhinovirus/Enterovirus Not Detected (NOT DETECT); Influenza A Not Detected (NOT DETECT); Influenza A H1 Not Detected (NOT DETECT); Influenza A H1-2009 Not Detected (NOT DETECT); Influenza A H3 Not Detected (NOT DETECT); Influenza B Not Detected (NOT DETECT); Mycoplasma Pneumoniae Not Detected (NOT DETECT); Parainfluenza Virus Type 1 Not Detected (NOT DETECT); Parainfluenza Virus Type 2 Not Detected (NOT DETECT); Parainfluenza Virus Type 3 Not Detected (NOT DETECT); Parainfluenza Virus Type 4 Not Detected (NOT DETECT); Respiratory Syncytial Virus A Not Detected (NOT DETECT); Respiratory Syncytial Virus B Not Detected (NOT DETECT); SARS-COV-2 Not Detected (NOT DETECT)
[2021-12-29] VITALS (9 sets, daily range): BP systolic 123–150; BP diastolic 86–98; PULSE 60–88; RESP 14–19; TEMP 36.4–36.9; O2SAT 95–100
--- NOTE | 2021-12-29 00:21 | PM.HP ---
Providers/Chief Complaint Admitting Physician: Pa Wilson Primary Care Provider: Naga Alonzo Chief Complaint: Confused History of Present Illness 56-year-old gentleman was brought into ER for evaluation due to behavioral changes, with bizarre thoughts, paranoid ideation, appears unaware also of his condition. Reported trying to get into strangers' cars. Prior history of CVA, with CVA previously possibly associated with some behavioral changes as well. He seems unaware of his condition. He is unable to contribute to history, is very paranoid. Asked if he will talk to me states yes, but only after he needs to make a phone call, asked who he would call he states my pediatric ophthalmologist . When asked if he has been in usual state of health recently, he deflects questions, but subsequently states yes, except have had dozens of strokes . When asked about his medications, or if he has been taking his medications, states they should know . Then states I see you are also holding my little tickets in your hand , although I was not holding anything in my hand at the time. He declines to further speak with me. Declines to be examined. Work-up so far in ER not entirely revealing. Initially with some sinus tachycardia, 119 bpm. Afebrile. Without leukocytosis. With some metabolic alkalosis, pH 7.46. Mild dehydration, noted KIAH versus CKD, creatinine 1.9, BUN 39. Received fluid challenge. Received 1 dose of haloperidol. TSH 1.89. Baseline troponin 19. Coronavirus PCR undetectable. EtOH undetectable. Ammonia not elevated. UA and UDS requested and pending. No acute findings on chest x-ray. CT of the head without acute intracranial abnormality. Hospitalization was requested for additional medical assessment, with psychiatric consultation, possible further psychiatric assessment and/or admission. Review of Systems General: Reports: ROS unobtainable due to mental status Medications/Allergies Allergies Allergy/AdvReac Type Severity Reaction Status Date / Time Unable to Assess Allergy Unverified 12/28/21 20:52 PFSH Acute PFSH: Medical History CAD (coronary artery disease) Diabetes HTN (hypertension) Stroke Surgical History Coronary angioplasty status Social History Smoking and tobacco status: former smoker Alcohol intake: former Vitals/I&O/Wt Last Vital Signs Temp 97.6 F 12/28/21 20:49 Pulse 73 12/28/21 22:05 Resp 16 12/28/21 22:05 BP 139/93 12/28/21 22:05 Pulse Ox 98 12/28/21 21:15 O2 Del Method 12/28/21 20:49 12/28/21 12/28/21 12/29/21 14:59 22:59 06:59 Intake Total 1000 / 1000 Balance 1000 / 1000 Weight last 48 hrs Weight 65.771 kg Physical Exam Narrative: Declines to be examined, you will not touch me . Const: COMMON NORMALS: alert GENERAL APPEARANCE: not cooperative ORIENTATION/CONSCIOUSNESS: Yes awake Neck/C-Spine: COMMON NORMALS: no JVD Resp: EFFORT & INSPECTION: Yes able to speak in complete sentences and Yes symmetric chest movement Neuro: SENSORIUM/ORIENTATION: Yes alert Psych: ATTITUDE: Yes uncooperative, Yes evasive, Yes Guarded attititude/behavior present, Yes Belligerent attititude/behavior present and No agitated ACTIVITY/MOTOR BEHAVIOR: Yes Avoids eye contact (attititude/behavior) MOOD & AFFECT: Yes irritable THOUGHT CONTENT: Yes delusions Delusional thought content details: paranoid Data : 12/28/21 21:10 12/28/21 21:10 Micro: Microbiology 12/28/21 21:40 Blood Culture - Preliminary Blood SPECIMEN COLLECTED 12/28/21 21:39 Blood Culture - Preliminary Blood SPECIMEN COLLECTED A&P Assessment and plan (1) Bizarre behavior: So far work-up not entirely revealing. Does appear to have some KIAH, and some mild dehydration. Possibly prerenal KIAH. Noted mild ovation T bili, although does not appear to have any complaints abdominal pain or discomfort. Possibly also secondary to dehydration. New bizarre behavior with paranoid ideation, does not appear to have very good insight of his condition currently. Noted history of CVA, CAD, prior stenting, but appears has lacked understanding of need for taking his medications. Medications noted scattered about at home. History of CVA. Reportedly had had some paranoid ideation with prior CVA. We will additionally assess with MRI brain. We will additionally assess B12, folic acid. Follow-up UA, UDS. 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 Consideration of anticholinergic symptoms with some sinus tachycardia, some dehydration, although not sure that he would be taking his medications currently. Hold amantadine for now. We will request records from PCP as to any further information regarding this. Perhaps underlying condition may be contributing to his behavioral changes as well. Consideration of benzodiazepine withdrawal as he appears to have been previously chronic and benzodiazepine. If he has not been taking his medications may have been going through withdrawal, although currently sinus tachycardia. This resolved, he does appears to have other symptoms of withdrawal. Monitor condition. We will continue benzodiazepines. Other neurologic considerations noninfectious encephalitis, although does not appear to have focal deficits, no seizures reported. Consideration of Warnicke and other encephalopathy, Lewy body dementia. Psychiatric considerations, pending additional evaluation by psychiatry. Continue supportive care. One-to-one sitter. Antipsychotic as needed with Haldol IM in case of agitation. (2) KIAH (acute kidney injury): Received fluid challenge. Oral intake as tolerating. Follow-up renal function. (3) Hyperbilirubinemia: Suspect secondary to dehydration. Received IVF. Reassess level. 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 Avoid NSAIDs. Plavix. Statin. CAD Diabetes HTN Requested to list Home medications. Please review and reconcile once available. Attestations Medical Necessity Statement*: Admission of over 2 midnights anticipated versus management of new behavioral changes, with bizarre behavior, additional assessment gentleman with noted dehydration, KIAH, past history of CVA as well as history of CAD, currently with poor understanding of his conditions and needed treatment. Coding Level of Care Code Acute Beck Tender for Caterina Webb Diagnoses Bizarre behavior R46.2 KIAH (acute kidney injury) N17.9 Hyperbilirubinemia E80.6
--- NOTE | 2021-12-29 01:53 | MR_ITS ---
WS: [id number] MRI HEAD WITHOUT CONTRAST TECHNIQUE: Sagittal T1, T2 axial, T2 axial FLAIR, axial and coronal T1 images, axial susceptibility w eighted imaging, axial diffusion weighted images, and coronal T2 images were obtained. CLINICAL INFORMATION: behavioral changes COMPARISON: CT 2021 FINDINGS: No evidence of restricted diffusion to suggest acute ischemia. Ventricular system and basal cisterns are patent. Patchy supratentorial white matter changes likely due to small vessel disease in a patien t this age. Mild parenchymal volume loss. Normal posterior fossa. Normal vascular flow voids at the s kull base. No extra-axial fluid collections. No evidence of mass or mass effect. Mild mucosal thickening in the ethmoid air cells. Mastoid air cells are well aerated. Small amount of chronic hemosiderin adjacent t o the RIGHT lateral ventricle. Normal optic chiasm and pituitary infundibulum. Moderate symmetric atr ophy temporal lobes and hippocampal formations Normal cavernous sinuses and Meckel's cave. Prior postoperative changes bilateral frontal young holes with presumed ventriculostomy tracts with encephalomalacia and gliosis in the frontal lobes bilateral ly. Small amount of associated hemosiderin in the LEFT greater than RIGHT frontal lobes. MR/MR head wo con* [id number] IMPRESSION: 1. No evidence of restricted diffusion to suggest acute ischemia. 2. Moderate patchy supratentorial white matter changes can be seen with hypert ension, diabetes, small vessel disease in a patient this age. Mild parenchymal volume loss. 3. Moderate symmetric atrophy temporal lobes and hippocampal formations. 4. Bilateral frontal young holes with presumed ventriculostomy tracks in the fr ontal lobes bilaterally. Associated encephalomalacia and gliosis with a small a mount of hemosiderin. 5. No other suspicious findings.
--- NOTE | 2021-12-29 02:48 | ECG_ITS ---
[facility] Test Date: 2021-12-29 Pat Name: Caden Boudreaux Department: Room: 264 Gender: Male Pre Certification Specialist: : [id number] Requested By: Marito Ferguson Order Number: [id number] Candelario MD: Delta Martin M.D. Measurements Intervals Matador Rate: 66 P: 72 OR: 163 QRS: 37 QRSD: 93 T: -61 QT: 423 QTc: 445 Interpretive Statements SINUS RHYTHM MODERATE T-WAVE ABNORMALITY, CONSIDER INFERIOR ISCHEMIA [-0.1+ mV T-WAVE IN II/aVF] Compared to ECG 12/28/2021 21:28:34 Ventricular premature complex(es) no longer present T-wave abnormality still present Possible ischemia still present Electronically Signed On 12-29-2021 7:15:40 CDT by Delta Martin M.D. [id number]
[2021-12-29 06:22] LABS: Glucose Point of Care 117 mg/dL (70-110)
[2021-12-29 07:33] LABS: Folate Level 5.8 ng/mL (4.5-32.2)
[2021-12-29 07:34] LABS: Vitamin B12 223 pg/mL (232-1245)
--- NOTE | 2021-12-29 08:27 | PC.NURSE ---
Upon physical assessment this am, patient was very lethargic and arsouable to touch and speech. The patient was confused and did not remember coming in and where he was.
[2021-12-29] MEDS: CLONazepam 0.5 mg Tablet PO ×2 (09:15→17:43)
[2021-12-29] MEDS: clopidogrel 75 mg Tablet PO (09:15)
[2021-12-29] MEDS: LORazepam 2 mg Tablet PO (09:33)
--- NOTE | 2021-12-29 09:58 | PC.PHAR ---
pts son keshia [phone] states he is going to bring in a list of meds he found at his fathers house-pts son keshia states the pt normally takes care of his own medications
--- NOTE | 2021-12-29 10:29 | PC.NURSE ---
PATIENT'S SON AGGIE NIELSEN CAME AND COLLECTED PATIENTS WALLET, KEYS, AND KNIVES THAT WERE IN THE PYXIS.
[2021-12-29 10:49] LABS: Glucose Point of Care 121 mg/dL (70-110)
--- NOTE | 2021-12-29 10:49 | PC.CHAP ---
Pastoral Care Encounter/Spiritual Assessment Type of Contact [] Declined client experience specialist visit [] Patient/Family/Request visit [] Outpatient visit [] Follow-up visit [] Physician referral [] Code/Alert [] Routine visit [] Staff referral [] Actively dying [] Patient sleeping [] Family support [] [] Out of room [] Palliative care [] [] Receiving care in room [] Pre-surgical visit [] Trauma [] Long length of stay [] ICU visit [x] Other: with Staff Relational/Emotional Strength [] Patient feels connected with others/family/visitors/staff [] Distress [] Loneliness/isolation [] Abandonment Spirituality of Patient [] Person of Meena [] Attends Jehovah'S Witness of their Meena [] Believes in Prayer [] Reads Bible or Islam materials [] There are Spiritual issues to be addressed 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 Interventions [] Prayer [] Active listening [] Non-anxious presence [] Spiritual/emotional support [] Crisis/trauma care [] Spiritual counseling [] Bereavement support [] Provided bereavement packet [] Provided Bible/devotional materials [] Provided toy/stuffed animal, coloring book to patient or family member [] Provided Communion [] Anointing/[place] [] Salvation [] Completed spiritual assessment [] Other: Impact on Illness or Injury [] Angry [] Fearful [] Anxious [] Often cries [] Exhaustion [] Unable to work [] Unable to attend restorationist [] Unable to walk/stand [] Unable to read [] Unable to drive [] Unable to eat/drink [] Unable to sleep [] Unable to be with family [] Patient intubated [] Other: Summary with Staff Time spent with patient 5 mins
[2021-12-29] MEDS: cyanocobalamin 1,000 mcg/mL SDV 1000 MCG IM (12:45)
--- NOTE | 2021-12-29 13:27 | PC.NURSE ---
Dr. Saeed notified of not voiding for over a day. The patient was bladder scanned and showed greater than 200ml. No new orders at this time.
[2021-12-29 13:46] LABS: Basophils % 0.5 %; Eosinophils % 0.7 %; Hematocrit 43.4 % (42.0-52.0); Hemoglobin 14.7 g/dL (11.7-16.6); Lymphocytes # 0.6 10^3/uL (0.8-4.8); Lymphocytes % 15.3 %; Mean Corpuscular HGB Conc 33.9 g/dL (30.0-36.0); Mean Corpuscular Hemoglobin 29.5 pg (28.0-34.0); Mean Corpuscular Volume 87.1 fl (80-94); Mean Platelet Volume 11.7 fL (7.4-10.4); Monocytes # 0.2 10^3/uL (0.2-0.9); Monocytes % 5.9 %; Neutrophils # 3.13 10^3/uL (1.8-7.7); Neutrophils % 77.4 %; Nucleated Red Blood Cells % 0 %; Platelet Count 102 10^3/cmm (130-400); Red Blood Count 4.98 10^6/uL (4.1-5.3); Red Cell Distribution Width 13.5 % (12.1-15.1); White Blood Count 4.1 10^3/uL (4.0-10.0)
--- NOTE | 2021-12-29 13:49 | PM.MISC ---
Miscellaneous Note Note: 56-year-old male with past medical history of coronary disease hypertension diabetes CVA, was admitted for the management of behavioral issues, with bizarre thoughts, paranoid ideation, appears unaware also of his condition. Reported trying to get into strangers' cars. So far his work-up has been only significant for vitamin B12 deficiency: For which vitamin B12 replacement has been initiated. Patient is currently on 96-hour hold. Patient has to be seen by psychiatry. Patient listed home medication includes metformin, if patient is taking that, then it could be the possible etiology for B12 deficiency.
[2021-12-29 14:01] LABS: Alanine Aminotransferase 21 U/L (0-41); Albumin Level 3.8 g/dL (3.5-5.2); Alkaline Phosphatase 53 U/L (40-130); Anion Gap 13.8 (5-19); Aspartate Amino Transferase 24 U/L (0-40); Blood Urea Nitrogen 30 mg/dL (6-20); Calcium 9.8 mg/dL (8.5-10.5); Carbon Dioxide 26 mmol/L (22-29); Chloride 102 mmol/L (98-107); Globulin 3.2 g/dL (1.3-4.6); Glomerular Filtration Rate 56.7 mL/min (90-130); Glucose 100 mg/dL (65-115); Osmolality Calculated 292 mOsm/kg (285-295); Potassium 3.8 mmol/L (3.5-5.1); Sodium 138 mmol/L (136-145); Total Bilirubin 1.6 mg/dL (0.15-1.2)
[2021-12-29] MEDS: sodium chloride 0.9% 1,000 ML 75 ML IV (15:03)
[2021-12-29 16:59] LABS: Glucose Point of Care 75 mg/dL (70-110)
[2021-12-29] MEDS: metoprolol tartrate 25 mg Tablet 12.5 MG PO (17:42)
[2021-12-29 19:07] LABS: Add Urine Microscopic? YES; Bilirubin Urine 1+ (Negative); Blood Urine Neg (Negative); Glucose Urine UA Norm (Normal); Ketones Urine Negative (Negative); Leukocyte Esterase Urine Negative (Negative); Nitrate Urine Negative (Negative); Protein Urine Trace (Negative); Specific Gravity, Urine 1.025 (1.005-1.030); Urine Appearance Clear (CLEAR); Urine Color Amber (Yellow); Urobilinogen Urine 1 mg/dL (Negative); pH Urine 5 (5-7)
[2021-12-29 19:08] LABS: Add Urine Culture? No; Bacteria Urine TRACE /hpf; RBC Urine 0-4 /hpf (0-2)
[2021-12-29 19:12] LABS: Amphetamines Screen Urine Negative (Negative); Barbiturates Screen Urine Negative (Negative); Benzodiazepines Screen Urine Positive (Negative); Cocaine Screen Urine Negative (Negative); Opiate Screen Urine Negative (Negative); PCP Screen Urine Negative (Negative); THC Screen Urine Negative (Negative)
--- NOTE | 2021-12-29 19:18 | PC.NURSE ---
Report given to NIA Herrera
[2021-12-29] MEDS: atorvastatin 40 mg Tablet PO (21:06)
[2021-12-29 21:37] LABS: Glucose Point of Care 129 mg/dL (70-110)
[2021-12-30 03:56] VITALS: BP 144/87; PULSE 61; RESP 14; TEMP 36.6; O2SAT 100
[2021-12-30] MEDS: sodium chloride 0.9% 1,000 ML 75 ML IV (04:26)
[2021-12-30 05:35] LABS: Basophils % 0.8 %; Eosinophils % 1.1 %; Hematocrit 41.5 % (42.0-52.0); Hemoglobin 13.6 g/dL (11.7-16.6); Lymphocytes # 0.6 10^3/uL (0.8-4.8); Lymphocytes % 16.8 %; Mean Corpuscular HGB Conc 32.8 g/dL (30.0-36.0); Mean Corpuscular Hemoglobin 29.4 pg (28.0-34.0); Mean Corpuscular Volume 89.8 fl (80-94); Mean Platelet Volume 11.9 fL (7.4-10.4); Monocytes # 0.2 10^3/uL (0.2-0.9); Monocytes % 5.6 %; Neutrophils # 2.81 10^3/uL (1.8-7.7); Neutrophils % 75.2 %; Nucleated Red Blood Cells % 0 %; Platelet Count 98 10^3/cmm (130-400); Red Blood Count 4.62 10^6/uL (4.1-5.3); Red Cell Distribution Width 13.3 % (12.1-15.1); White Blood Count 3.7 10^3/uL (4.0-10.0)
[2021-12-30 05:57] LABS: Alanine Aminotransferase 22 U/L (0-41); Albumin Level 3.5 g/dL (3.5-5.2); Alkaline Phosphatase 48 U/L (40-130); Anion Gap 11.6 (5-19); Aspartate Amino Transferase 23 U/L (0-40); Blood Urea Nitrogen 23 mg/dL (6-20); Calcium 9.1 mg/dL (8.5-10.5); Carbon Dioxide 26 mmol/L (22-29); Chloride 103 mmol/L (98-107); Globulin 2.6 g/dL (1.3-4.6); Glomerular Filtration Rate 76.7 mL/min (90-130); Glucose 79 mg/dL (65-115); Osmolality Calculated 287 mOsm/kg (285-295); Potassium 3.6 mmol/L (3.5-5.1); Sodium 137 mmol/L (136-145); Total Bilirubin 1.2 mg/dL (0.15-1.2); Total Protein 6.1 g/dL (6.6-8.7)
[2021-12-30 06:26] LABS: Glucose Point of Care 79 mg/dL (70-110)
[2021-12-30 07:05] VITALS: BP 142/87; PULSE 69; RESP 15; TEMP 36.6; O2SAT 100
[2021-12-30] MEDS: aspirin 81 mg Chew Tablet PO (08:58)
[2021-12-30] MEDS: CLONazepam 0.5 mg Tablet PO (08:58)
[2021-12-30] MEDS: clopidogrel 75 mg Tablet PO (08:58)
[2021-12-30] MEDS: pantoprazole DR 40 mg Tablet PO (08:58)
[2021-12-30] MEDS: cyanocobalamin 1,000 mcg/mL SDV 1000 MCG IM (08:58)
[2021-12-30] MEDS: metoprolol tartrate 25 mg Tablet 12.5 MG PO (08:58)
--- NOTE | 2021-12-30 10:11 | W.PM.PSYCONS ---
Providers/Reason for Consult Consulting Physican/Specialty*: Ramón Singh/Psychiatry Reason for Consult*: mental status changes and confusion Attending Physician: Sawyer Saeed MD Primary Care Provider: Naga Alonzo Psych Consult HPI History of Present Illness Caden Boudreaux is a 56 year old male admitted to due to behavioral changes who has a history of strokes low vitamin D and history of being prescribed Klonopin. Patient was interviewed today. He was alert stated that he was unable to remember why he had been admitted initially. He did not report having any recent problems with behavioral changes at home. He reports that he had lost weight recently and did acknowledge having some diminished interest at home. He minimized any depression at this time. He had reported living alone. He had reported continued desire to eat and stated that he had been chronically complaining to his physician about having diminished energy. He had reported that he had low vitamin B-12 in the past and that he may have had sleep apnea but states that it is not been treated as of yet. He was unable to recall any reason for why he may have taken Klonopin although he was able to identify that he was on 1 mg twice a day of Klonopin. He minimized any history of panic attacks nor any clear history of anxiety problems. He had reported adequate sleep. Psychiatric history: None reported Pertinent social history: Patient stated that he lives alone and reports that he lives in [facility] by himself. He had reported being previously . He reports having numerous children and stepchildren that he considered family. 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 He had reported no history of trauma. He had minimized any significant history of substance abuse. He had acknowledged having some difficulties with managing medical issues including the reported history of coronary artery disease diabetes hypertension stroke. Meds Home Medications and Allergies Home Medications Medication Instructions Recorded Confirmed Last Taken Type amantadine HCl 100 mg capsule 100 mg PO TID 12/29/21 12/29/21 Unknown History aspirin 81 mg chewable tablet 81 mg PO DAILY 12/29/21 12/29/21 Unknown History atorvastatin 80 mg tablet 80 mg PO QPM 12/29/21 12/29/21 Unknown History blood sugar diagnostic 12/29/21 12/29/21 Unknown History blood-glucose meter 12/29/21 12/29/21 Unknown History clopidogrel 75 mg tablet 75 mg PO DAILY 12/29/21 12/29/21 Unknown History hydrocodone 5 mg-acetaminophen 325 1 tab PO Q8H PRN Pain 12/29/21 12/29/21 Unknown History mg tablet insulin glargine 100 unit/mL (3 34 unit SUBCUT DAILY 12/29/21 12/29/21 Unknown History mL) subcutaneous pen (Lantus Solostar U-100 Insulin) insulin needles (disposable) 31 12/29/21 12/29/21 Unknown History lancets 12/29/21 12/29/21 Unknown History lisinopril 10 mg tablet 10 mg PO DAILY 12/29/21 12/29/21 Unknown History meloxicam 7.5 mg tablet 7.5 mg PO DAILY 12/29/21 12/29/21 Unknown History metformin 500 mg tablet 500 mg PO BIDWMEAL 12/29/21 12/29/21 Unknown History metoprolol tartrate 25 mg tablet 12.5 mg PO BID 12/29/21 12/29/21 Unknown History naloxone 4 mg/actuation nasal spray 4 mg intranasal Q3M PRN (Drug) 12/29/21 12/29/21 Unknown History Ingestion nitroglycerin 400 mcg/spray 1 spray translingual Q5M PRN Chest 12/29/21 12/29/21 Unknown History translingual Pain pantoprazole 40 mg tablet,delayed 40 mg PO DAILY 12/29/21 12/29/21 Unknown History release semaglutide 1 mg/dose (2 mg/1.5 1 mg SUBCUT DIRECTED 12/29/21 12/29/21 Unknown History mL) subcutaneous pen injector (Ozempic) tizanidine 2 mg tablet 2 mg PO Q8H PRN Pain 12/29/21 12/29/21 Unknown History trazodone 50 mg tablet 50 mg PO DAILY 12/29/21 12/29/21 Unknown History clonazepam 0.5 mg tablet 0.5 mg PO TID #90 tabs 12/30/21 Unknown Rx cyanocobalamin (vitamin B-12) 1,000 mcg IM DIRECTED 30 days 12/30/21 Unknown Rx 1,000 mcg/mL injection solution #25 mL Allergies Allergy/AdvReac Type Severity Reaction Status Date / Time Iodinated Contrast Media Allergy ALGY-Hives Verified 12/29/21 09:32 Sulfa (Sulfonamide Allergy ALGY-Rash Verified 12/29/21 09:33 Antibiotics) PFSH NPU PFSH: Medical History CAD (coronary artery disease) Diabetes HTN (hypertension) Stroke Surgical History Coronary angioplasty status Social History Smoking and tobacco status: former smoker Alcohol intake: former Mental Status Exam MSE Comments: He was friendly and cooperative on interview he appeared in no acute distress he appropriately used humor during much of the interview and was inquisitive at times. He described his mood as all right. His affect was slightly restricted. There was some evidence of anergia appreciated. He was awake alert and oriented to person place time and situation. There was no evidence of any abnormal involuntary motor movements tics or tremors. He did not appear to be responding to internal stimuli. He minimized any suicidal or homicidal ideation. His insight appeared adequate. His judgment appeared fair. his impulse control appeared fair. Vitals/I&O/Wt Last Vital Signs Temp 97.8 F 12/30/21 11:34 Pulse 63 12/30/21 11:34 Resp 15 12/30/21 11:34 BP 127/86 12/30/21 11:34 Pulse Ox 98 12/30/21 11:34 O2 Del Method 12/30/21 11:34 12/30/21 12/30/21 12/30/21 06:59 14:59 22:59 Intake Total 1000 / 2440 120 / 120 Output Total 0 / 500 Balance 1000 / 1940 120 / 120 Weight last 48 hrs Weight 65.771 kg Data NPU : 12/30/21 04:48 12/30/21 04:48 Micro: Microbiology 12/28/21 21:40 Blood Culture - Preliminary Blood NEGATIVE TO DATE 12/28/21 21:39 Blood Culture - Preliminary Blood NEGATIVE TO DATE Microbiology 12/28/21 21:40 Blood Blood Culture - Preliminary NEGATIVE TO DATE 12/28/21 21:39 Blood Blood Culture - Preliminary NEGATIVE TO DATE A&P Assessment and plan (1) Altered mental status: (2) Bizarre behavior: (3) Hallucination: (4) B12 deficiency: (5) Benzodiazepine withdrawal: Plan Patient appears ready for discharge. I spent time discussing with patient about possible causes or contributors to his change in mental status. I provided him information regarding the use of Klonopin and had suggested that he take this medication very routinely as potential stopping of this medication after taking 2 mg a day for several years could possibly lead to these symptoms that had presented initially here. I had also provided him some information regarding B12 deficiency as he appears to have had this problem for a significant amount of time and reported that this may contribute if not treated to problems with continued depressed mood low energy low motivation and fatigue. The patient appeared to understand the various options and was agreeable to continuing the treatment including B12 injections and a routine use of Klonopin with the eventual plan of reducing this medication as it is not indicated for long-term use. I had suggested that this should be done on an outpatient basis over the course of months. Attestations NPU Medical Necessity Statement*: Patient safe to return home with follow up with outpatient provider. 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
[2021-12-30 10:53] LABS: Glucose Point of Care 104 mg/dL (70-110)
--- NOTE | 2021-12-30 11:26 | P.DS_ITS ---
Discharge Providers Date of Admission: 12/28/21 23:24 Date of Discharge: December 30, 2021 Attending Provider at Admission: Pa Wilson Attending Provider at Discharge: Sawyer Saeed MD Primary Care Provider: Naga Alonzo Diagnoses at Discharge Discharge Diagnosis (1) Bizarre behavior: Status: Acute (2) KIAH (acute kidney injury): Status: Acute (3) Hyperbilirubinemia: Status: Acute Reason for Visit Reason for Visit: Confused Hospital Course Hospital Course HPI: Pa Wilson: 56-year-old gentleman was brought into ER for evaluation due to behavioral changes, with bizarre thoughts, paranoid ideation, appears unaware also of his condition. Reported trying to get into strangers' cars.? Prior history of CVA, with CVA previously possibly associated with some behavioral changes as well. He seems unaware of his condition.? He is unable to contribute to history, is very paranoid.? 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 When asked if he has been in usual state of health recently, he deflects questions, but subsequently states yes, except have had dozens of strokes .? When asked about his medications, or if he has been taking his medications, states they should know .? Then states I see you are also holding my little tickets in your hand , although I was not holding anything in my hand at the time.? He declines to further speak with me.? Declines to be examined.? Work-up so far in ER not entirely revealing.? Initially with some sinus tachycardia, 119 bpm.? Afebrile.? Without leukocytosis.? With some metabolic alkalosis, pH 7.46.? Mild dehydration, noted KIAH versus CKD, creatinine 1.9, BUN 39.? Received fluid challenge.? Received 1 dose of haloperidol. TSH 1.89.? Baseline troponin 19.? Coronavirus PCR undetectable.? EtOH undetectable.? Ammonia not elevated.? UA and UDS requested and pending. No acute findings on chest x-ray. CT of the head without acute intracranial abnormality.? Hospitalization was requested for additional medical assessment, with psychiatric consultation, possible further psychiatric assessment and/or admission. Hospital course: Patient was admitted for the management of bizarre behavior, KIAH, vitamin B12 deficiency. Psych was on board: They are of the opinion that quite possible likely sudden decrease in dose of clonazepam triggered the event, walter has opted for gradual withdrawal of clonazepam. Please see psychiatry note for further details. Patient was also found to be have vitamin B12 deficiency, one of the listed medication is metformin, possibly contributing to weight, for now we have held metformin, he has been continued on his other antidiabetic medications, which will be good enough for now to control his diabetes, patient has been started on IM B12 replacement, will need repeat serum vitamin B12 level in a month, for further dose adjustment. MRI head done during the hospital stay: Has not shown any acute pathology. For his KIAH likely prerenal secondary dehydration as well as possibly secondary to lisinopril, responded well to IV hydration:Lisinopril has been kept on hold for few days he will reinitiate shortly. Patient has responded well to above medical management is being discharged in stable condition to home. Will follow with primary care physician as outpatient. Physical Exam Const: COMMON NORMALS: patient oriented x3 HENMT: COMMON NORMALS: normocephalic and atraumatic HEAD & SCALP: normocephalic and atraumatic Chest: COMMONS NORMALS: normal inspection of the chest and normal palpation of entire chest wall CHEST: Yes Symmetrical chest wall rise Resp: COMMON NORMALS: normal respiratory effort, No retractions, No use of accessory muscles and clear to auscultation bilaterally EFFORT & INSPECTION: Yes symmetric chest movement AUSCULTATION: clear to auscultation bilaterally Cardio: COMMON NORMALS: regular rate, regular rhythm, S1 normal heart sound present, S2 normal heart sound present, No gallops present (Cardio), No murmurs present (Cardio), No rub (Cardio) and Peripheral pulses 2+ throughout RATE: regular rate RHYTHM: regular rhythm HEART SOUNDS: S1 normal heart sound present and S2 normal heart sound present PERIPHERAL PULSES: Peripheral pulses 2+ throughout GI: COMMON NORMALS: Normal to inspection, nondistended, normoactive bowel sounds present, Soft to palpation, non-tender, No hepatosplenomegaly present and no masses AUSCULTATION: Yes normoactive bowel sounds PALPATION: Yes Soft to palpation and Yes No hepatosplenomegaly present RECTAL EXAM: Yes deferred Extremity: COMMON NORMALS: no clubbing, cyanosis or edema and no pedal edema Neuro: COMMON NORMALS: patient oriented x3 Discharge Data Studies Completed and Pending Completed Studies During Hospitalization Category Date Time Status CT head wo con* [id number] Stat Cat Scan 12/28/21 21:09 Completed XR chest 1V portable [id number] Stat Exams 12/28/21 21:09 Completed MR head wo con* [id number] Routine MRI 12/29/21 01:53 Completed Pending at discharge Category Date Time Status Blood Culture Stat Lab 12/28/21 21:40 Results Complete Blood Count w/Auto AM LABS Lab 12/31/21 04:00 Ordered Complete Blood Count w/Auto AM LABS Lab 01/01/22 04:00 Ordered Comprehensive Metabolic Panel AM LABS Lab 12/31/21 04:00 Ordered Comprehensive Metabolic Panel AM LABS Lab 01/01/22 04:00 Ordered HBA1C [Hemoglobin A1C] AM LABS Lab 12/31/21 04:00 Ordered Radiology Impressions Chest X-Ray 12/28/21 21:09 IMPRESSION: No acute findings. Head CT 12/28/21 21:09 IMPRESSION: No acute intracranial abnormality. Head MRI 12/29/21 01:53 IMPRESSION: 1. No evidence of restricted diffusion to suggest acute ischemia. 2. Moderate patchy supratentorial white matter changes can be seen with hypertension, diabetes, small vessel disease in a patient this age. Mild parenchymal volume loss. 3. Moderate symmetric atrophy temporal lobes and hippocampal formations. 4. 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 Associated encephalomalacia and gliosis with a small amount of hemosiderin. 5. No other suspicious findings. Laboratory Results WBC 3.7 10^3/uL (4.0-10.0) L 12/30/21 04:48 RBC 4.62 10^6/uL (4.1-5.3) 12/30/21 04:48 Hgb 13.6 g/dL (11.7-16.6) 12/30/21 04:48 Hct 41.5 % (42.0-52.0) L 12/30/21 04:48 MCV 89.8 fl (80-94) 12/30/21 04:48 MCH 29.4 pg (28.0-34.0) 12/30/21 04:48 MCHC 32.8 g/dL (30.0-36.0) 12/30/21 04:48 RDW 13.3 % (12.1-15.1) 12/30/21 04:48 Plt Count 98 10^3/cmm (130-400) L 12/30/21 04:48 MPV 11.9 fL (7.4-10.4) H 12/30/21 04:48 Neut % (Auto) 75.2 % 12/30/21 04:48 Lymph % (Auto) 16.8 % 12/30/21 04:48 [place] % (Auto) 5.6 % 12/30/21 04:48 Eos % (Auto) 1.1 % 12/30/21 04:48 Baso % (Auto) 0.8 % 12/30/21 04:48 Neut # (Auto) 2.81 10^3/uL (1.8-7.7) 12/30/21 04:48 Lymph # (Auto) 0.6 10^3/uL (0.8-4.8) L 12/30/21 04:48 [place] # (Auto) 0.2 10^3/uL (0.2-0.9) 12/30/21 04:48 Eos # (Auto) 0.0 10^3/uL (0.0-0.8) 12/30/21 04:48 Baso # (Auto) 0.0 10^3/uL (0.0-0.1) 12/30/21 04:48 Nucleated RBC % (auto) 0 % 12/30/21 04:48 Nucleated RBCs # 0.0 /100WBC 12/30/21 04:48 Specimen Type Arterial 12/28/21 21:14 Sample Site Radial, right 12/28/21 21:14 ABG pH 7.46 (7.35-7.45) H 12/28/21 21:14 ABG pCO2 36.1 mmHg (35-45) 12/28/21 21:14 ABG pO2 96.5 mmHg (80.0-100.0) 12/28/21 21:14 ABG HCO3 25.6 mmol/L (22-26) 12/28/21 21:14 ABG O2 Saturation 98.5 12/28/21 21:14 ABG Base Excess 1.9 mmol/L (-2.0-2.0) 12/28/21 21:14 Jelani Test Pos 12/28/21 21:14 A-a O2 Gradient 1.0 mmHg (5-10) L 12/28/21 21:14 Hematocrit 45.4 % (42-52) 12/28/21 21:14 Hgb O2 Saturation 97.1 % (95-100) 12/28/21 21:14 Carboxyhemoglobin 0.9 %THgb (0.4-20.1) 12/28/21 21:14 Methemoglobin 0.5 % (0.4-1.5) 12/28/21 21:14 Total Hemoglobin 14.8 g/dL (14-18) 12/28/21 21:14 Sodium 137.0 mmol/L (131-143) 12/28/21 21:14 Potassium 3.4 mmol/L (3.5-5.0) L 12/28/21 21:14 Glucose 140.0 mg/dL (70-115) H 12/28/21 21:14 Ionized Calcium 1.3 mmol/L (1.1-1.4) 12/28/21 21:14 O2 Delivery Device None 12/28/21 21:14 FiO2 21.0 % 12/28/21 21:14 Locomotive Engineer ID [place] 12/28/21 21:14 Sodium 137 mmol/L (136-145) 12/30/21 04:48 Potassium 3.6 mmol/L (3.5-5.1) 12/30/21 04:48 Chloride 103 mmol/L (98-107) 12/30/21 04:48 Carbon Dioxide 26 mmol/L (22-29) 12/30/21 04:48 Anion Gap 11.6 (5-19) 12/30/21 04:48 BUN 23 mg/dL (6-20) H 12/30/21 04:48 Creatinine 1.0 mg/dL (0.7-1.2) 12/30/21 04:48 GFR Calculation 76.7 mL/min (90-130) L 12/30/21 04:48 Glucose 79 mg/dL (65-115) 12/30/21 04:48 POC Glucose 104 mg/dL (70-110) 12/30/21 10:42 Calculated Osmolality 287 mOsm/kg (285-295) 12/30/21 04:48 Calcium 9.1 mg/dL (8.5-10.5) 12/30/21 04:48 Total Bilirubin 1.2 mg/dL (0.15-1.2) 12/30/21 04:48 AST 23 U/L (0-40) 12/30/21 04:48 ALT 22 U/L (0-41) 12/30/21 04:48 Alkaline Phosphatase 48 U/L (40-130) 12/30/21 04:48 Ammonia 16 umol/L (16-60) 12/28/21 21:10 Troponin T Baseline 19 ng/L (0-15) H 12/28/21 21:10 Total Protein 6.1 g/dL (6.6-8.7) L 12/30/21 04:48 Albumin 3.5 g/dL (3.5-5.2) 12/30/21 04:48 Globulin 2.6 g/dL (1.3-4.6) 12/30/21 04:48 Vitamin B12 223 pg/mL (232-1245) L 12/29/21 03:06 Folate 5.8 ng/mL (4.5-32.2) 12/29/21 03:06 TSH 1.81 uIU/mL (0.27-4.20) 12/28/21 21:10 Urine Color Courtney (Yellow) 12/29/21 18:55 Urine Appearance Clear (CLEAR) 12/29/21 18:55 Urine pH 5 (5-7) 12/29/21 18:55 Ur Specific [place] 1.025 (1.005-1.030) 12/29/21 18:55 Urine Protein Trace (Negative) 12/29/21 18:55 Urine Glucose (UA) Norm (Normal) 12/29/21 18:55 Urine Ketones Negative (Negative) 12/29/21 18:55 Urine Blood Neg (Negative) 12/29/21 18:55 Urine Nitrate Negative (Negative) 12/29/21 18:55 Urine Bilirubin 1+ (Negative) H 12/29/21 18:55 Urine Urobilinogen 1 mg/dL (Negative) H 12/29/21 18:55 Ur Leukocyte Esterase Negative (Negative) 12/29/21 18:55 Urine RBC 0-4 /hpf (0-2) H 12/29/21 18:55 Urine WBC None /hpf (0-5) 12/29/21 18:55 Ur Squamous Epith Cells None /hpf (0-5) 12/29/21 18:55 Amorphous Sediment Not Reportable 12/29/21 18:55 Urine Bacteria Trace /hpf (NONE) 12/29/21 18:55 Salicylates < 0.3 mg/dL (3-10) L 12/28/21 21:10 Urine Opiates Screen Negative ng/mL (Negative) 12/29/21 18:55 Acetaminophen < 5.0 ug/mL (10-30) L 12/28/21 21:10 Ur Barbiturates Screen Negative ng/mL (Negative) 12/29/21 18:55 Ur Phencyclidine Scrn Negative ng/mL (Negative) 12/29/21 18:55 Ur Amphetamines Screen Negative ng/mL (Negative) 12/29/21 18:55 U Benzodiazepines Scrn Positive ng/mL (Negative) H 12/29/21 18:55 Urine Cocaine Screen Negative ng/mL (Negative) 12/29/21 18:55 U Marijuana (THC) Screen Negative ng/mL (Negative) 12/29/21 18:55 Ethyl Alcohol < 10 mg/dL (0-10) 12/28/21 21:10 Coronavirus 229E (PCR) Not detected (NOT DETECT) 12/28/21 21:30 SARS-CoV-2 (PCR) Not detected (NOT DETECT) 12/28/21 21:30 Vitals Last Vital Signs Temp 97.8 F 12/30/21 07:05 Pulse 69 12/30/21 07:05 Resp 15 12/30/21 07:05 BP 142/87 12/30/21 07:05 Pulse Ox 100 12/30/21 07:05 O2 Del Method 12/30/21 07:05 Discharge Plan Discharge Patient Disposition: Home Condition: Stable Prescriptions: New clonazepam 0.5 mg tablet 0.5 mg PO TID Qty: 90 0RF Continued amantadine HCl 100 mg Capsule 100 mg PO TID pantoprazole 40 mg Tablet,Delayed Release (Dr/Ec) 40 mg PO DAILY clopidogrel 75 mg Tablet 75 mg PO DAILY trazodone 50 mg Tablet 50 mg PO DAILY metoprolol tartrate 25 mg Tablet 12.5 mg PO BID atorvastatin 80 mg Tablet 80 mg PO QPM hydrocodone-acetaminophen 5-325 mg Tablet 1 tab PO Q8H PRN (Reason: Pain) aspirin 81 mg Tablet,Chewable 81 mg PO DAILY nitroglycerin 400 mcg/spray Tornado,Non-Aerosol 1 spray TRANSLINGUAL Q5M PRN (Reason: Chest Pain) Rx Instructions: do not exceed 3 doses per episode meloxicam 7.5 mg Tablet 7.5 mg PO DAILY tizanidine 2 mg Tablet 2 mg PO Q8H PRN (Reason: Pain) naloxone 4 mg/actuation Tornado,Non-Aerosol 4 mg INTRANASAL Q3M PRN (Reason: (Drug) Ingestion) Rx Instructions: spray 1 dose into ONE nostril; alternate nostrils w each dose until help arrives (DME) lancets Misc MISCELLANEOUS (DME) blood-glucose meter Kit MISCELLANEOUS (DME) blood sugar diagnostic Strip MISCELLANEOUS (DME) insulin needles (disposable) 31 Needle MISCELLANEOUS Lantus Solostar U-100 Insulin 100 unit/mL (3 mL) Insulin Pen 34 unit SUBCUT DAILY Ozempic 1 mg/dose (2 mg/1.5 mL) Pen Injector 1 mg SUBCUT DIRECTED Rx Instructions: INJECT 1MG SUBCUTANEOUS INJECTION EVERY 7 DAYS cyanocobalamin (vitamin B-12) 1,000 mcg/mL Solution 1,000 mcg IM DIRECTED 30 Days Qty: 25 0RF Rx Instructions: INJECT 1ML BY IM EVERY DAYS for 7 days, then every week for a month Held metformin 500 mg Tablet 500 mg PO BIDWMEAL Hold Instructions: Resume on 01/30/22. lisinopril 10 mg Tablet 10 mg PO DAILY Hold Instructions: Resume on 01/03/22. Discontinued clonazepam 1 mg Tablet 1 mg PO BID Discharge Orders: Discharge Order (Routine); Ordered 12/30/21 Ordered By: Sawyer Saeed Other Ambulatory Orders: Vitamin B12 (Routine) Timeframe: 1 Month Facility: [facility] - Location: Lab - Main Lab Ordered By: Sawyer Saeed Referrals: [facility] [Other] [facility] [Other] Naga Alonzo [Primary Care Provider] - 01/03/22 1:00 pm Patient Instructions: Clonazepam (By mouth), Acute Kidney Injury (DC), Opioid Safety Discharge Attestations Time Spent in Discharge Care*: less than 30 min Quality Metrics Clinical Quality Measures [ No reported AMI, CVA or VTE this stay] Coding Level of Care Code Acute Chg FW DC note Diagnoses Bizarre behavior R46.2 KIAH (acute kidney injury) N17.9 Hyperbilirubinemia E80.6
[2021-12-30 11:34] VITALS: BP 127/86; PULSE 63; RESP 15; TEMP 36.6; O2SAT 98
--- NOTE | 2021-12-30 16:55 | PC.NURSE ---
Called [place] for Clonazapam per written order as well as hypodermic needles for IM B12 injections.
== END 2021-12-30 14:02 | disposition home or self-care (01) ==
LOC: ER 23:42 → MEDSURG 12-29 00:58
PROVIDERS: Emergency Medicine; Admitting Provider Internal Medicine; Emergency Provider Emergency Medicine; PCP Family Medicine; Visit Provider Internal Medicine
DX: N17.9 Acute kidney failure, unspecified (principal); F13.239 Sedative, hypnotic or anxiolytic dependence with withdrawal, unspecified; Z86.73 Personal history of transient ischemic attack (TIA), and cerebral infarction without residual deficits; I25.10 Atherosclerotic heart disease of native coronary artery without angina pectoris; Z98.61 Coronary angioplasty status; E11.9 Type 2 diabetes mellitus without complications; I10 Essential (primary) hypertension; Z87.891 Personal history of nicotine dependence; E86.0 Dehydration; E53.8 Deficiency of other specified B group vitamins; E55.9 Vitamin D deficiency, unspecified; T42.4X5A Adverse effect of benzodiazepines, initial encounter; Z79.02 Long term (current) use of antithrombotics/antiplatelets; Z79.891 Long term (current) use of opiate analgesic; Z79.82 Long term (current) use of aspirin; Z79.4 Long term (current) use of insulin
CPT/HCPCS: 36415; 36416; 36600; 70450; 70551; 71045; 80051; 80053; 80306; 80307; 81001; 82140; 82330; 82607; 82746; 82805; 82962; 84443; 84484; 85025; 87040; 87635; 93005; 96360; 96361; 96372; 99285; G0378; J1630; J3420; J7030

== ENCOUNTER 2022-02-26 15:50 | Emergency (ER) | payer MEDICARE, MEDICAID, SELFPAY ==
[2022-02-26 16:27] VITALS: BP 107/74; PULSE 80; RESP 15; TEMP 36.8; O2SAT 100
--- NOTE | 2022-02-26 19:17 | XRR_ITS ---
PROCEDURE INFORMATION: Exam: XR Chest Exam date and time: 02/26/2022 7:24 PM Age: 56 years old Clinical indication: Other: AMS TECHNIQUE: Imaging protocol: Radiologic exam of the chest. Views: 1 view. COMPARISON: CR XR chest 1V portable [id number] 12/28/2021 9:17 PM FINDINGS: Lungs: Unremarkable. No consolidation. Suspected nodule records nipple shadows overlying the lower lung peterson bilateral right greater than left, repeat exam with nipple markers could be obtained. Pleural spaces: Unremarkable. No pleural effusion. No pneumothorax. Heart/Mediastinum: Unremarkable. No cardiomegaly. Bones/joints: Unremarkable. XR/XR chest 1V portable [id number] IMPRESSION: 1. No acute findings. 2. Suspected nipple shadows overlying the lower lung peterson bilaterally right greater than left, repeat exam with nipple markers could be obtained.
--- NOTE | 2022-02-26 19:19 | ECG_ITS ---
[facility] Test Date: 2022-02-26 Pat Name: Caden Boudreaux Department: Room: Gender: Male Network Analyst: : 1965 Requested By: Benson Medina Order Number: [id number] Candelario MD: Shaniqua Gary M.D. Measurements Intervals [place] Rate: 66 P: 64 FL: 182 QRS: 40 QRSD: 93 T: 75 QT: 389 QTc: 410 Interpretive Statements SINUS RHYTHM Compared to ECG 12/29/2021 02:48:16 T-wave abnormality no longer present Possible ischemia no longer present Electronically Signed On 02-27-2022 5:55:14 VENEER STAPLER by Shaniqua Gary M.D. [email or web address]
[2022-02-26 19:58] LABS: Basophils % 0.6 %; Eosinophils % 0.6 %; Hematocrit 47.4 % (42.0-52.0); Hemoglobin 16.1 g/dL (11.7-16.6); Lymphocytes # 0.8 10^3/uL (0.8-4.8); Lymphocytes % 15.1 %; Mean Corpuscular Hemoglobin 29.8 pg (28.0-34.0); Mean Corpuscular Volume 87.8 fl (80-94); Mean Platelet Volume 12.3 fL (7.4-10.4); Monocytes # 0.3 10^3/uL (0.2-0.9); Neutrophils # 4.21 10^3/uL (1.8-7.7); Neutrophils % 78.5 %; Nucleated Red Blood Cells % 0 %; Platelet Count 118 10^3/cmm (130-400); Red Cell Distribution Width 13.9 % (12.1-15.1); White Blood Count 5.4 10^3/uL (4.0-10.0)
[2022-02-26 20:00] VITALS: BP 133/98
[2022-02-26 20:02] LABS: Alanine Aminotransferase 15 U/L (0-41); Albumin Level 4.5 g/dL (3.5-5.2); Alcohol Level < 10 mg/dL (0-10); Alkaline Phosphatase 54 U/L (40-130); Anion Gap 18.2 (5-19); Aspartate Amino Transferase 23 U/L (0-40); Blood Urea Nitrogen 48 mg/dL (6-20); Calcium 10.6 mg/dL (8.5-10.5); Carbon Dioxide 26 mmol/L (22-29); Chloride 95 mmol/L (98-107); Globulin 3.2 g/dL (1.3-4.6); Glomerular Filtration Rate 32.6 mL/min (90-130); Glucose 110 mg/dL (65-115); Osmolality Calculated 293 mOsm/kg (285-295); Potassium 4.2 mmol/L (3.5-5.1); Sodium 135 mmol/L (136-145); Total Bilirubin 1.6 mg/dL (0.15-1.2); Total Protein 7.7 g/dL (6.6-8.7)
[2022-02-26 20:03] LABS: Ammonia 15 umol/L (16-60)
[2022-02-26 20:16] LABS: Creatine Phosphokinase 48 U/L (39-308)
[2022-02-26] MEDS: sodium chloride 0.9% 1,000 ML 999 ML IV ×2 (20:30→21:05)
[2022-02-26 22:13] VITALS: BP 135/98
--- NOTE | 2022-02-26 23:40 | PC.NURSE ---
Son and patient requested for patient to be discharged and would obtain UA sample at home and bring back to lab for analysis. Dr Barnes was notified of request and an outpt order for UA was placed. Urinal was provided to patient for specimen collection.
[2022-02-27 00:35] VITALS: BP 139/89; PULSE 92; RESP 18; O2SAT 94
--- NOTE | 2022-02-27 13:34 | ED_ITS ---
HPI - Weakness General: Chief complaint: Weakness Stated complaint: Weak, hearing and seeing things Time Seen by Provider: 02/26/22 19:00 Source: patient and family History of Present Illness: 56yo male presenting with generalized weakness and episodes of delirium with hallucinations. He has a history of delirium and was admitted back in December. He saw psychiatry and was treated. His son, who lives out of town, came to visit for the Holidays and noted that his delirium had not improved and that he seemed generally weak. The son brought him in for e valuation. MD Complaint: generalized weakness and difficulty walking Onset (ago): unknown Duration: constant and progressively worsening (potentially) Location: generalized Migration: none Severity: moderate Quality: other Relieving factors: none Context: history of similar Associated symptoms: Reports confusion and decreased appetite; Denies chest pain, fever(s), headache(s), short of breath or vomiting Review of Systems Const: Denies: fever(s) Card: Denies: chest pain Resp: Denies: dyspnea GI: Denies: vomiting or diarrhea Neuro: Reports: weakness in extremities, difficulty walking and confusion; Denies: headache(s) Psych: Reports: irritability, visual hallucinations and auditory tyesha lucinations; Denies: suicidal ideation or homicidal ideation PFS ED PFSH: Medical History KIAH (acute kidney injury) Altered mental status Bizarre behavior CAD (coronary artery disease) Diabetes Hallucination HTN (hypertension) Hyperbilirubinemia Stroke Surgical History Coronary angioplasty status Social History Smoking and tobacco status: former smoker Alcohol intake: former Physical Exam Const: COMMON NORMALS: no acute distress and alert GENERAL APPEARANCE: comfortable and frail appearing; not ill appearing NUTRITIONAL APPEARANCE: thin ORIENTATION/CONSCIOUSNESS: Yes oriented to person and Yes oriented to place HENMT: COMMON NORMALS: normocephalic, atraumatic and Normal external nose present HEAD & SCALP: normocephalic and atraumatic FACE & SINUS: normal facial exam and face symmetric NOSE: Normal external nose present MOUTH: Abnormal oral and palatal mucosa present (dry mucous membranes.) Eye: COMMON NORMALS: Equal, round and reactive pupils present and EOMs intact bilaterally PUPIL: Yes Equal, round and reactive pupils present Neck/C-Spine: GENERAL: Yes trachea midline Chest: CHEST: Yes Symmetrical chest wall rise Resp: COMMON NORMALS: normal respiratory effort, No retractions, No use of accessory muscles and clear to auscultation bilaterally AUSCULTATION: clear to auscultation bilaterally Cardio: COMMON NORMALS: regular rate and regular rhythm RATE: regular rate RHYTHM: regular rhythm GI: COMMON NORMALS: Normal to inspection, nondistended, normoactive bowel sounds present Extremity: COMMON NORMALS: no pedal edema Neuro: POPEYE COMA SCALE: document GCS findings Popeye coma scale eye opening: Spontaneous [place] coma scale verbal response: Confused [place] coma s megan motor response: Obey commands [place] coma scale total score: 14 SENSORIUM/ORIENTATION: Yes alert, Yes oriented to person and Yes oriented to place CRANIAL NERVES: Yes CN normal except as noted COORDINATION/BALANCE: [id number] test normal SPEECH: speech normal GAIT: Yes Shuffling gait present SENSORY EXAM: Yes extremities (intact) MOTOR EXAM: Pronator motor function not present COORDINATION: [id number] test normal Psych: COMMON NORMALS: speech normal APPEARANCE: Yes grossly normal ATTITUDE: Yes calm and Yes Withdrawn affect present SPEECH: Yes normal speech Skin: COMMON NORMALS: no rashes or lesions noted GENERAL SKIN EXAM: no rashes or lesions noted Course Vital Signs: Vital signs: Vital Signs Temperature 98.2 F 02/26/22 16:27 Pulse Rate 92 02/27/22 00:35 Respiratory Rate 18 02/27/22 00:35 Blood Pressure 139/89 02/27/22 00:35 Pulse Oximetry 94 02/27/22 00:35 Oxygen Delivery Ma thod 02/26/22 16:27 MDM - Weakness Medical Decision Making 56 yo gentleman presenting with generalized weakness and mental status change. This seems to be a recurrent problem. Head MRI was performed on previous admission, and found no definite cause. In terms of acute workup, he is afebrile. His creatinine is above baseline at 2 with an elevted BUN indicative of dehydration. Other serum labs are not remarkable, save a chronically elevated bilirubin. he is hydrated here with iv fluids. For some reason, he was reluctant to give a urine sample, as it was explained to him and his son that a UTI can present with delirium. we attempted a straight cath for urine but the patient did not tolerate. he has walked to the bathroom. although somewhat unstable, he is able to ambulate. He does not appear to be a danger to himself. I do not see an acute problem at this point that hospital admission would benefit, barring a potential UTI that can be treated as an outpatient. The son asked if he could bring the urine sample back when his father is able to urinate to run the sample and report to his doctor. We have allowed this rather than having him sign out AMA due to lack of urine sample. The patient is on a couple of medications that could cause urinary retention. He will follow up as an outpatient with his PCP. Placement in an assisted living facility or residential at some point may be of benefit. I have asked our case management social worker to reach out to PCP and request home health for the patient as well. Lab Data 02/26/22 19:34 02/26/22 19:34 Radiology Impressions Chest X-Ray 02/26/22 19:17 IMPRESSION: 1. No acute findings. 2. Suspected nipple shadows overlying the lower lung peterson bilaterally right greater than left, repeat exam with nipple markers could be obtained. Laboratory Results WBC 5.4 10^3/uL (4.0-10.0) 02/26/22 19: RBC 5.40 10^6/uL (4.1-5.3) H 02/26/22 19:34 Hgb 16.1 g/dL (11.7-16.6) 02/26/22 19:34 Hct 47.4 % (42.0-52.0) 02/26/22 19: MCV 87.8 fl (80-94) 02/26/22 19: MCH 29.8 pg (28.0-34.0) 02/26/22 19: MCHC 34.0 g/dL (30.0-36.0) 02/26/22: RDW 13.9 % (12.1-15.1) 02/26/22 19:34 Plt Count 118 10^3/cmm (130-400) L 02/26/22 19:34 MPV 12.3 fL (7.4-10.4) H 02/26/22 19: Neut % (Auto) 78.5 % 02/26/22 19:34 Lymph % (Auto) 15.1 % 02/26/22 19:34 Pender % (Auto) 5.0 % 02/26/22 19:34 Eos % (Auto) 0.6 % 02/26/22 19:34 Baso % (Auto) 0.6 % 02/26/22 19:34 Neut # (Auto) 4.21 10^3/uL (1.8-7.7) 02/26/22 19:34 Lymph # (Auto) 0.8 10^3/uL (0.8-4.8) 02/26/22 19:34 Pender # (Auto) 0.3 10^3/uL (0.2-0.9) 02/26/22 19:34 Eos # (Auto) 0.0 10^3/uL (0.0-0.8) 02/26/22 19:34 Baso # (Auto) 0.0 10^3/uL (0.0-0.1) 02/26/22 19:34 Nucleated RBC % (auto) 0 % 02/26/22 19:34 Nucleated RBCs # 0.0 /100WBC 02/26/22 19:34 Sodium 135 mmol/L (136-145) L 02/26/22 19:34 Potassium 4.2 mmol/L (3.5-5.1) 02/26/22 19:34 Chloride 95 mmol/L (98-107) L 02/26/22 19:34 Carbon Dioxide 26 mmol/L (22-29) 02/26/22 19:34 Anion Gap 18.2 (5-19) 02/26/22 19:34 BUN 48 mg/dL (6-20) H 02/26/22 19:34 Creatinine 2.1 mg/dL (0.7-1.2) H 02/26/22 19:34 GFR Calculation 32.6 mL/min (90-130) L 02/26/22 19:34 Glucose 110 mg/dL (65-115) 02/26/22 19:34 Calculated Osmolality 293 mOsm/kg (285-295) 02/26/22 19:34 Calcium 10.6 mg/dL (8.5-10.5) H 02/26/22 19:34 Total Bilirubin 1.6 mg/dL (0.15-1.2) H 02/26/22 19:34 AST 23 U/L (0-40) 02/26/22 19:34 ALT 15 U/L (0-41) 02/26/22 19:34 Alkaline Phosphatase 54 U/L (40-130) 02/26/22 19:34 Ammonia 15 umol/L (16-60) L 02/26/22 19:34 Creatine Kinase 48 U/L (39-308) 02/26/22 19:34 C-Reactive Protein 3.0 mg/L (0.0-4.9) 02/26/22 19:34 Total Protein 7.7 g/dL (6.6-8.7) 02/26/22 19:34 Albumin 4.5 g/dL (3.5-5.2) 02/26/22 19:34 Globulin 3.2 g/dL (1.3-4.6) 02/26/22 19:34 Ethyl Alcohol < 10 mg/dL (0-10) 02/26/22 19:34 Discharge Plan Discharge Patient Disposition: Home Clinical Impression: Acute delirium Condition: Stable Prescriptions: No Action amantadine HCl 100 mg Capsule 100 mg PO TID pantoprazole 40 mg Tablet,Delayed Release (Dr/Ec) 40 mg PO DAILY clopidogrel 75 mg Tablet 75 mg PO DAILY trazodone 50 mg Tablet 50 mg PO DAILY metformin 500 mg Tablet 500 mg PO BIDWMEAL Hold Instructions: Resume on 01/30/22. metoprolol tartrate 25 mg Tablet 12.5 mg PO BID atorvastatin 80 mg Tablet 80 mg PO QPM lisinopril 10 mg Tablet 10 mg PO DAILY Hold Instructions: Resume on 01/03/22. hydrocodone-acetaminophen 5-325 mg Tablet 1 tab PO Q8H PRN (Reason: Pain) aspirin 81 mg Tablet,Chewable 81 mg PO DAILY nitroglycerin 400 mcg/spray [place],Non-Aerosol 1 spray TRANSLINGUAL Q5M PRN (Reason: Chest Pain) Rx Instructions: do not exceed 3 doses per episode meloxicam 7.5 mg Tablet 7.5 mg PO DAILY tizanidine 2 mg Tablet 2 mg PO Q8H PRN (Reason: Pain) naloxone 4 mg/actuation [place],Non-Aerosol 4 mg INTRANASAL Q3M PRN (Reason: (Drug) Ingestion) Rx Instructions: spray 1 dose into ONE nostril; alternate nostrils w each dose until help arrives (DME) lancets Misc MISCELLANEOUS (DME) blood-glucose meter Kit MISCELLANEOUS (DME) blood sugar diagnostic Strip MISCELLANEOUS (DME) insulin needles (disposable) 31 Needle MISCELLANEOUS Lantus Solostar U-100 Insulin 100 unit/mL (3 mL) Insulin Pen 34 unit SUBCUT DAILY Ozempic 1 mg/dose (2 mg/1.5 mL) Pen Injector 1 mg SUBCUT DIRECTED Rx Instructions: INJECT 1MG SUBCUTANEOUS INJECTION EVERY 7 DAYS clonazepam 0.5 mg tablet 0.5 mg PO TID Qty: 90 0RF cyanocobalamin (vitamin B-12) 1,000 mcg/mL Solution 1,000 mcg IM DIRECTED 30 Days Qty: 25 0RF Rx Instructions: INJECT 1ML BY IM EVERY DAYS for 7 days, then every week for a month Discharge Orders: Discharge ED (Routine); Ordered 02/27/22 Ordered By: Benson Barnes Other Ambulatory Orders: Urinalysis and Microscopic (Routine) Timeframe: 1 Day Facility: [facility] - Location: Lab - Main Lab Ordered By: Benson Barnes Referrals: Naga Alonzo [Primary Care Provider] - 1-3 days Patient Instructions: Acute Delirium (ED) Activity Restrictions/Additional Instructions: Bring the urine back to the main lab. Keep it refrigerated until which time she can bring it back. Call your doctor tomorrow for an appointment this week. I will ask our case management social worker to get in contact with your doctor regarding home health nursing help, which the patient will need. Return for fever greater than 100, other concerns. Coding Level of Care Code ED Tie Binder for Chg Fwd Exam Comprehensive
--- NOTE | 2022-02-28 13:17 | DCPLANNER ---
pre school manager had message to speak with patients primary care provider about getting home health into the home. pre school manager called [facility] in [facility] [place], was told that provider had ordered home health in January from [facility]. pre school manager was told that clinic will call and verify that patient still has the services in the home.
== END 2022-02-27 00:35 | disposition home or self-care (01) ==
PROVIDERS: Emergency Provider Emergency Medicine; PCP Family Medicine
DX: R41.0 Disorientation, unspecified (principal); Z79.84 Long term (current) use of oral hypoglycemic drugs; Z79.02 Long term (current) use of antithrombotics/antiplatelets; Z79.82 Long term (current) use of aspirin; Z79.4 Long term (current) use of insulin; I25.10 Atherosclerotic heart disease of native coronary artery without angina pectoris; E11.9 Type 2 diabetes mellitus without complications; I10 Essential (primary) hypertension; Z86.73 Personal history of transient ischemic attack (TIA), and cerebral infarction without residual deficits; Z98.61 Coronary angioplasty status; Z87.891 Personal history of nicotine dependence
CPT/HCPCS: 71045; 80053; 80307; 82140; 82550; 85025; 86140; 93005; 96360; 99285; J7030